=== PATIENT | female | born 1975 | race Caucasian/White ===

== ENCOUNTER 2016-10-06 18:40 | Emergency (ER) | payer SELFPAY ==
--- NOTE | 2016-10-06 19:00 | ER Document Report ---
ED Medical Screen (RME) - General Stated Complaint: LEG PAIN Time seen by provider: 18:58 Mode of Arrival: Ambulatory Information source: Patient Notes: 41-year-old female presents to ED for pain left hip and leg and all the way to knees with numbness to toes. She states she has nightmares and fell out of bed Friday night. She states the pain is progressively gotten worse since Friday. Her blood pressure is elevated in RME she states that her blood pressures always elevated when she has pain. I have greeted and performed a rapid initial assessment of this patient. A comprehensive ED assessment and evaluation of the patient, analysis of test results and completion of medical decision making process will be conducted by an additional ED providers. TRAVEL OUTSIDE OF THE [place] IN LAST 30 DAYS: No COUNTRY TRAVELED TO/FROM: [facility] - Related Data Allergies/Adverse Reactions: pineapple [Pineapple] Allergy (Severe, Verified 07/10/16 03:35) Blisters hydrocodone [Hydrocodone] Adverse Reaction (Severe, Verified 07/10/16 03:35) Patient states "Really bad Headache" Powder From Gloves Allergy (Mild, Uncoded 07/10/16 03:35) Blisters Past Medical History - Past Medical History Cardiac Medical History: Denies: Hx Coronary Artery Disease, Hx Heart Attack, Hx Hypertension Pulmonary Medical History: Reports: Hx Asthma Denies: Hx Bronchitis, Hx COPD, Hx Pneumonia Neurological Medical History: Denies: Hx Cerebrovascular Accident, Hx Seizures Renal/ Medical History: Reports: Hx Kidney Stones, Hx Ovarian Cysts GI Medical History: Reports: Hx Gastroesophageal Reflux Disease Musculoskeltal Medical History: Denies Hx Arthritis, Reports Hx Musculoskeletal Trauma Traumatic Medical History: Reports: Hx Fractures Past Surgical History: Reports: Hx Kidney (Renal Surgery) - stones, Hx Orthopedic Surgery - right foot, Hx Tonsillectomy - Immunizations Immunizations up to date: Yes Hx Diphtheria, Pertussis, Tetanus Vaccination: Yes Physical Exam - Vital signs Vitals: Temp Pulse Resp BP Pulse Ox 98.4 F 83 20 167/109 H 99 10/06/16 18:51 10/06/16 18:51 10/06/16 18:51 10/06/16 18:51 10/06/16 18:51 Course - Vital Signs Vital signs: Temp Pulse Resp BP Pulse Ox 98.4 F 83 20 167/109 H 99 10/06/16 18:51 10/06/16 18:51 10/06/16 18:51 10/06/16 18:51 10/06/16 18:51
[2016-10-06] MEDS ORDERED: ACETAMINOPHEN 325 MG TABLET PO ONE (19:01)
[2016-10-06] MEDS ORDERED: ONDANSETRON 4 MG TAB.RAPDIS PO ONE (19:01)
[2016-10-06] MEDS ORDERED: OXYCODONE HCL IR 5 MG TABLET PO ONE (19:34)
--- NOTE | 2016-10-06 19:35 | ER Document Report ---
ED Hip Pain/Injury - General Chief Complaint: Hip Pain Stated Complaint: LEG PAIN Mode of Arrival: Ambulatory Notes: Patient is a 41-year-old female that comes emergency department with chief complaint of pain to her left hip, thigh, and also in the left side of her lower back. She states that she feels intermittent tingling to the side of her left foot and toes, she states that 3 days ago she actually fell out of her bed while having a nightmare and landed on her left hip/side, states that she has had progressively worsening symptoms since that time. She is not on a blood thinner. Past medical history of type II diabetes. TRAVEL OUTSIDE OF THE [place] IN LAST 30 DAYS: No COUNTRY TRAVELED TO/FROM: [facility] - Related Data Allergies/Adverse Reactions: pineapple [Pineapple] Allergy (Severe, Verified 10/06/16 19:01) Blisters hydrocodone [Hydrocodone] Adverse Reaction (Severe, Verified 10/06/16 19:01) Patient states "Really bad Headache" Powder From Gloves Allergy (Mild, Uncoded 10/06/16 19:01) Blisters Home Medications: Current Home Medications Levothyroxine Sodium [Synthroid] 100 mcg PO DAILY 10/06/16 [History] Metformin HCl [Glucophage] 1,000 mg PO BID 10/06/16 [History] Past Medical History - General Information source: Patient - Social History Smoking Status: Current Every Day Smoker Chew tobacco use (# tins/day): No Frequency of alcohol use: Social Drug Abuse: None Lives with: Family Family History: Arthritis, Hypertension, Thyroid Disfunction Patient has suicidal ideation: No Patient has homicidal ideation: No - Past Medical History Cardiac Medical History: Denies: Hx Coronary Artery Disease, Hx Heart Attack, Hx Hypertension Pulmonary Medical History: Reports: Hx Asthma Denies: Hx Bronchitis, Hx COPD, Hx Pneumonia Neurological Medical History: Denies: Hx Cerebrovascular Accident, Hx Seizures Renal/ Medical History: Reports: Hx Kidney Stones, Hx Ovarian Cysts. Denies: Hx Peritoneal Dialysis GI Medical History: Reports: Hx Gastroesophageal Reflux Disease Musculoskeltal Medical History: Denies Hx Arthritis, Reports Hx Musculoskeletal Trauma Traumatic Medical History: Reports: Hx Fractures Past Surgical History: Reports: Hx Kidney (Renal Surgery) - stones, Hx Orthopedic Surgery - right foot, Hx Tonsillectomy - Immunizations Immunizations up to date: Yes Hx Diphtheria, Pertussis, Tetanus Vaccination: Yes Review of Systems - Review of Systems Constitutional: No symptoms reported EENT: No symptoms reported Cardiovascular: No symptoms reported Respiratory: No symptoms reported Gastrointestinal: No symptoms reported Genitourinary: No symptoms reported Female Genitourinary: No symptoms reported Musculoskeletal: See HPI Skin: No symptoms reported Hematologic/Lymphatic: No symptoms reported Neurological/Psychological: No symptoms reported Physical Exam - Vital signs Vitals: Temp Pulse Resp BP Pulse Ox 98.4 F 83 20 167/109 H 99 10/06/16 18:51 10/06/16 18:51 10/06/16 18:51 10/06/16 18:51 10/06/16 18:51 Interpretation: Normal - General General appearance: Appears well, Alert In distress: None - HEENT Head: Normocephalic, Atraumatic Eyes: Normal Conjunctiva: Normal Extraocular movements intact: Yes Eyelashes: Normal Pupils: PERRL Sinus: Normal Nasal: Normal Mouth/Lips: Normal Mucous membranes: Normal Pharynx: Normal Neck: Normal - Respiratory Respiratory status: No respiratory distress Chest status: Nontender Breath sounds: Normal. No: Decreased air movement, Productive cough, Wheezing Chest palpation: Normal - Cardiovascular Rhythm: Regular. No: Tachycardia Heart sounds: Normal auscultation, S1 appreciated, S2 appreciated Murmur: No - Abdominal Inspection: Normal Distension: No distension Bowel sounds: Normal Tenderness: Nontender. No: Tender, Guarding - Back Back: Other - Mild generalized left lower lumbar and buttocks tenderness, no signs of trauma, no saddle anesthesia, no midline spinal tenderness - Extremities General upper extremity: Normal inspection, Nontender, Normal color, Normal ROM , Normal temperature General lower extremity: Other - Patient with general tenderness over the left lateral thigh over the femoral bursa area and over the proximal thigh, no ecchymosis or swelling, no numbness, patient maintains range of motion and ability to walk on the leg, normal distal neurovascular exam. - Neurological Neuro grossly intact: Yes Cognition: Normal Orientation: AAOx4 [place] Coma Scale Eye Opening: Spontaneous [place] Coma Scale Verbal: Oriented [place] Coma Scale Motor: Obeys Commands [place] Coma Scale Total: 15 Speech: Normal Motor strength normal: LUE, RUE, LLE, RLE Sensory: Normal - Psychological Associated symptoms: Normal affect, Normal mood - Skin Skin Temperature: Warm Skin Moisture: Dry Skin Color: Normal Course - Re-evaluation Re-evalutation: No signs of trauma on exam. Patient does have general tenderness over the left lateral thigh and over the femoral bursa area, she walks with a limp and does appear to have difficulty getting comfortable when sitting or lying down. Patient reports she is much improved after pain medication and appears much more comfortable. X-ray is normal, patient has no neurological deficits, no saddle anesthesia, no bowel or bladder complaints, and she can ambulate. Discussed x-ray, discussed treatment plan of pain medication, muscle relaxer, ice, rest, and follow-up with orthopedics with patient, discussed return precautions, patient states satisfaction and agreement with plan. - Vital Signs Vital signs: Temp Pulse Resp BP Pulse Ox 98.5 F 86 20 170/90 H 96 10/06/16 21:34 10/06/16 21:34 10/06/16 18:51 10/06/16 21:34 10/06/16 21:34 Discharge - Discharge Clinical Impression: Hip pain Qualifiers: Laterality: left Qualified Code(s): M25.552 - Pain in left hip Fall Qualifiers: Encounter type: initial encounter Qualified Code(s): W19.XXXA - Unspecified fall, initial encounter Thigh pain Qualifiers: Laterality: left Qualified Code(s): M79.652 - Pain in left thigh Condition: Stable Disposition: HOME, SELF-CARE Additional Instructions: No fracture seen on the imaging. Rest, take the muscle relaxer and pain medication as directed, ice your hip and thigh. If symptoms continue follow-up with orthopedics for additional management. Return to emergency department for any concerning worsening symptoms including loss of bowel or bladder functioning, severe swelling, redness to the area, or any other concerning symptoms. Prescriptions: Methocarbamol [Robaxin 750 mg Tablet] 750 mg PO Q6 #20 tablet Oxycodone HCl/Acetaminophen [Percocet 5-325 mg Tablet] 1 - 2 tab PO Q4H PRN #15 tablet PRN Reason: Forms: Elevated Blood Pressure
[2016-10-06 21:38] VITALS: BP 170/90
== END 2016-10-06 21:38 | disposition home or self-care (01) ==
LOC: ER 18:40
DX: M25.552 Pain in left hip (principal); M79.652 Pain in left thigh; M54.5 Low back pain; R20.2 Paresthesia of skin; W06.XXXA Fall from bed, initial encounter; Y93.84 Activity, sleeping; E11.9 Type 2 diabetes mellitus without complications; J45.909 Unspecified asthma, uncomplicated; F17.200 Nicotine dependence, unspecified, uncomplicated; Z91.018 Allergy to other foods; Z91.048 Other nonmedicinal substance allergy status
CPT/HCPCS: 99283; 73502; S0119

== ENCOUNTER → 2017-06-23 | Outpatient (CLI) | payer OTHER ==
[2017-06-23 15:51] LABS: SODIUM 138.8 mmol/L (137-145)
== END ==
LOC: CCC 14:51
DX: I10 Essential (primary) hypertension (principal); E03.9 Hypothyroidism, unspecified; E10.8 Type 1 diabetes mellitus with unspecified complications
CPT/HCPCS: 36415; 80051; 83036; 84436; 84443

== ENCOUNTER 2017-10-29 10:10 | Emergency (ER) | payer SELFPAY ==
--- NOTE | 2017-10-29 10:52 | ER Document Report ---
ED Hip Pain/Injury - General Chief Complaint: Hip Pain Stated Complaint: PELVIC AND RIGHT HIP PAIN Time Seen by Provider: 10/29/17 10:39 Mode of Arrival: Wheelchair Information source: Patient Notes: 42-year-old female presents to ED for complaint of right hip and pelvic pain. She states she slipped in the bathtub on Friday when she was washing her feet with her foot up against the tub wall she slipped hitting the tub while with her hip and pelvis. She states she has pain in her "vagina". She states the pain is only been getting worse not getting better. She did ambulate but received a walk wheelchair since she got to the emergency room. She has a history of diabetes high blood pressure hypothyroid kidney stones and a foot fracture. TRAVEL OUTSIDE OF THE [place] IN LAST 30 DAYS: No COUNTRY TRAVELED TO/FROM: [facility] - HPI Occurred: Other - Friday Where: Home, Indoors Onset/Duration: Sudden, Persistent Quality of pain: Sharp, Throbbing Severity: Severe Pain Level: 5 Context: Fell/slipped Symptoms prior to fall: None Skin Color: Normal Rotation of extremity: None Pain with palpation of the pelvis: Yes Associated Symptoms: None Other injuries: RLE - Related Data Allergies/Adverse Reactions: pineapple [Pineapple] Allergy (Severe, Verified 10/29/17 10:36) Blisters hydrocodone [Hydrocodone] Adverse Reaction (Severe, Verified 10/29/17 10:36) Patient states "Really bad Headache" Powder From Gloves Allergy (Mild, Uncoded 10/29/17 10:36) Blisters Past Medical History - General Information source: Patient - Social History Smoking Status: Current Every Day Smoker Cigarette use (# per day): Yes - Half pack per day Chew tobacco use (# tins/day): No Smoking Education Provided: Yes - 4 minutes Frequency of alcohol use: None Drug Abuse: None Occupation: [employer] Lives with: Parents Family History: Arthritis, CAD, COPD, CVA, DM, Hyperlipidemia, Hypertension, Malignancy, Thyroid Disfunction Patient has suicidal ideation: No Patient has homicidal ideation: No - Past Medical History Cardiac Medical History: Reports: Hx Hypertension Pulmonary Medical History: Reports: Hx Asthma EENT Medical History: Reports: None Neurological Medical History: Reports: None Endocrine Medical History: Reports: Hx Diabetes Mellitus Type 2, Hx Hypothyroidism Renal/ Medical History: Reports: Hx Kidney Stones, Hx Ovarian Cysts Malignancy Medical History: Reports: None GI Medical History: Reports: Hx Gastroesophageal Reflux Disease Musculoskeltal Medical History: Reports Hx Musculoskeletal Trauma Skin Medical History: Reports None Psychiatric Medical History: Reports: None Traumatic Medical History: Reports: Hx Fractures - Foot Infectious Medical History: Reports: None Past Surgical History: Reports: Hx Kidney (Renal Surgery) - stones, Hx Orthopedic Surgery - right foot, Hx Tonsillectomy - Immunizations Immunizations up to date: Yes Hx Diphtheria, Pertussis, Tetanus Vaccination: Yes Review of Systems - Review of Systems Constitutional: No symptoms reported EENT: No symptoms reported Cardiovascular: No symptoms reported Respiratory: No symptoms reported Gastrointestinal: No symptoms reported Genitourinary: No symptoms reported Female Genitourinary: No symptoms reported Musculoskeletal: Joint pain - Right hip and pelvic pain. denies: Joint swelling Skin: No symptoms reported Hematologic/Lymphatic: No symptoms reported Neurological/Psychological: No symptoms reported -: Yes All other systems reviewed and negative Physical Exam - Vital signs Vitals: Temp Pulse Resp BP Pulse Ox 97.7 F 86 20 150/90 H 98 10/29/17 10:18 10/29/17 10:18 10/29/17 10:18 10/29/17 10:18 10/29/17 10:18 Interpretation: Normal - General General appearance: Appears well, Alert - HEENT Head: Normocephalic, Atraumatic Eyes: Normal Pupils: PERRL - Respiratory Respiratory status: No respiratory distress Chest status: Nontender Breath sounds: Normal Chest palpation: Normal - Cardiovascular Rhythm: Regular Heart sounds: Normal auscultation Murmur: No - Abdominal Inspection: Normal Distension: No distension Bowel sounds: Normal Tenderness: Nontender Organomegaly: No organomegaly - Back Back: Normal, Nontender - Extremities General upper extremity: Normal inspection, Nontender, Normal color, Normal ROM , Normal temperature General lower extremity: Normal inspection, Normal color, Normal temperature. No: Geovany's sign Hip: Tender, Pain with ROM. No: Abrasion, Deformity, Dislocation, Ecchymosis, Instability, Laceration, Unable to bear weight - Very painful to bear weight - Neurological Neuro grossly intact: Yes Cognition: Normal Orientation: AAOx4 [place] Coma Scale Eye Opening: Spontaneous [place] Coma Scale Verbal: Oriented [place] Coma Scale Motor: Obeys Commands [place] Coma Scale Total: 15 Speech: Normal Motor strength normal: LUE, RUE, LLE, RLE Sensory: Normal - Psychological Associated symptoms: Normal affect, Normal mood - Skin Skin Temperature: Warm Skin Moisture: Dry Skin Color: Normal Course - Re-evaluation Re-evalutation: 10/29/17 12:07 X-ray shows no acute fractures or malalignment. She has mild SI joint vacuum phenomenon bilaterally mild acetabulum rim bony spurring otherwise a negative x- ray. Patient will be treated with ibuprofen in the emergency room and given a prescription for [place]. Patient will be discharged home and have follow-up with orthopedics. - Vital Signs Vital signs: Temp Pulse Resp BP Pulse Ox 98.5 F 72 16 128/77 H 99 10/29/17 12:23 10/29/17 12:23 10/29/17 12:23 10/29/17 12:23 10/29/17 12:23 - Diagnostic Test Radiology reviewed: Image reviewed, Reports reviewed Discharge - Discharge Clinical Impression: Contusion of right hip Qualifiers: Encounter type: initial encounter Qualified Code(s): S70.01XA - Contusion of right hip, initial encounter Condition: Stable Disposition: HOME, SELF-CARE Additional Instructions: CONTUSION: Your injury has resulted in a contusion -- a crushing of the deep tissues. No injury to important structures was detected during the physician's exam. Contusions vary in the amount of pain they cause, and in the length of time required for healing. Typically, the area will become bruised, and will remain painful to touch for two or three weeks. However, most patients are back to working and playing within a few days. After the initial period of rest and cold-packs, your symptoms (together with the doctor's recommendations) will determine how rapidly you can get back to full activity. Usually this means "do what feels okay, but don't do things that hurt." If re-examination was recommended, it's important to follow up as instructed. Call the doctor or return any time if pain increases, if swelling becomes severe, if you develop numbness or weakness in an injured extremity, or if any other alarming symptoms occur. USE OF TYLENOL (ACETAMINOPHEN): Acetaminophen may be taken for pain relief or fever control. It's much safer than aspirin, offering a wider range of "safe" dosages. It is safe during . Some brand names are Tylenol, Panadol, Datril, Anacin 3, Tempra, and Liquiprin. Acetaminophen can be repeated every four hours. The following are maximum recommended dosages: WEIGHT Dose Drops Elixir Chewable( 80mg) (LBS.) drprs=droppers tsp=teaspoon 6 40 mg 0.4 ml (1/2) 6-11 80 mg 0.8 ml (full) tsp 1 tab 12-16 120 mg 1 1/2 drprs 3/4 tsp 1 1/2 tabs 17-23 160 mg 2 drprs 1 tsp 2 tabs 24-30 240 mg 3 drprs 1 1/2 tsp 3 tabs 30-35 320 mg 2 tsp 4 tabs 36-41 360 mg 2 1/4 tsp 4 1/2 tabs 42-47 400 mg 2 1/2 tsp 5 tabs 48-53 480 mg 3 tsp 6 tabs 54-59 520 mg 3 1/4 tsp 6 1/2 tabs 60-64 560 mg 3 1/2 tsp 7 tabs 65-70 600 mg 3 3/4 tsp 7 1/2 tabs 71-76 640 mg 4 tsp 8 tabs 77-82 720 mg 4 1/2 tsp 9 tabs 83-88 800 mg 5 tsp 10 tabs >89 pounds or adults 650 mg to 900 mg Acetaminophen can be repeated every four hours. Maximum dose not to exceed 4000 mg a day. These maximum recommended dosages are slightly higher than the dosages written on the product container, but these dosages are very safe and below the toxic dosage for acetaminophen. ICE PACKS: Apply ice packs frequently against the painful area. Many different schedules are recommended, such as "20 minutes on, 20 minutes off" or "one hour ice, two hours rest." If you need to work, you may need to go longer between ice treatments. You should plan to have the area ice packed AT LEAST one fourth of the time. The ice should be applied over the wrap, tape, or splint, or over a layer of cloth -- not directly against the skin. Some ice bags have a built-in cloth and can be put directly on the skin. WARM PACKS: After approximately two days, apply gentle heat (such as a heating pad or hot water bottle) for about 20 to 30 minutes about every two hours -- at least four times daily. Warmth and elevation will help you make a more rapid recovery , and will ease the pain considerably. Do not use HOT heat, and never apply heat for longer than 30 minutes. The continuous heat can invisibly damage skin and muscles -- even when no burn is seen on the surface. Damaged muscles can make you MORE sore. ORAL NARCOTIC MEDICATION: You have been given a prescription for pain control. This medication is a narcotic. It's best taken with food, as nausea can result if taken on an empty stomach. Don't operate machinery or drive within six hours of taking this medication. Do not combine this medicine with alcohol, or with any medication which can cause sedation (such as cold tablets or sleeping pills) unless you get permission from the physician. Narcotics tend to cause constipation. If possible, drink plenty of fluids and eat a diet high in fiber and fruits. FOLLOW-UP CARE: If you have been referred to a physician for follow-up care, call the physician s office for an appointment as you were instructed or within the next two days. If you experience worsening or a significant change in your symptoms, notify the physician immediately or return to the Emergency Department at any time for re-evaluation. Prescriptions: Hydrocodone/Acetaminophen [[place] 5-325 mg Tablet] 1 tab PO Q6HP PRN #14 tablet PRN Reason: Ondansetron [Zofran Odt 4 mg Tablet] 1 tab PO Q6H #15 tab.rapdis Forms: Elevated Blood Pressure, Smoking Cessation Education, Return to Work Referrals: GABRIEL SAMPSON MD [ACTIVE STAFF] - Follow up as needed
--- NOTE | 2017-10-29 11:16 | RADIOLOGY REPORT (SQ) ---
EXAM DESCRIPTION: HIP RIGHT AP/LATERAL COMPLETED DATE/TIME: 10/29/2017 10:53 am REASON FOR STUDY: fell sat pain COMPARISON: None. NUMBER OF VIEWS: Two views. TECHNIQUE: AP pelvis and additional frog-leg view of the right hip. LIMITATIONS: None. FINDINGS: MINERALIZATION: Normal. RIGHT HIP: No fracture or dislocation. No worrisome bone lesions. No significant joint space narrow ing or bony spurring. LEFT HIP: No fracture or dislocation. No worrisome bone lesions. No significant joint space narrowi ng. Mild acetabular rim bony spurring PUBIS AND ISCHIUM: No fracture. PELVIS: No fracture. SACRUM: No fracture or dislocation. No worrisome bone lesions. Mild SI joint vacuum phenomenon bilat erally LOWER LUMBAR SPINE: No fracture or dislocation. No worrisome bone lesions. No significant disc disea se. SOFT TISSUES: No findings. OTHER: No other significant finding. IMPRESSION: No acute fracture or malalignment TECHNICAL DOCUMENTATION: JOB ID: [id number] [employer]- All Rights Reserved Reading location - IP/workstation name: [email or web address]
[2017-10-29 12:27] VITALS: BP 128/77
== END 2017-10-29 12:29 | disposition home or self-care (01) ==
LOC: ER 10:10
DX: S70.01XA Contusion of right hip, initial encounter (principal); M25.551 Pain in right hip; R10.2 Pelvic and perineal pain; W18.2XXA Fall in (into) shower or empty bathtub, initial encounter; Y93.E1 Activity, personal bathing and showering; Y92.002 Bathroom of unspecified non-institutional (private) residence as the place of occurrence of the external cause; M77.8 Other enthesopathies, not elsewhere classified; M53.3 Sacrococcygeal disorders, not elsewhere classified; I10 Essential (primary) hypertension; E11.9 Type 2 diabetes mellitus without complications; J45.909 Unspecified asthma, uncomplicated; F17.210 Nicotine dependence, cigarettes, uncomplicated; Z71.6 Tobacco abuse counseling; Z91.018 Allergy to other foods
CPT/HCPCS: 99283; 99406

== ENCOUNTER 2018-01-13 14:30 | Emergency (ER) | payer SELFPAY ==
[2018-01-13 14:38] VITALS: BP 126/87
[2018-01-13] MEDS ORDERED: DEXAMETHASONE SOD PHOS INJ 10 MG/1 ML VIAL IM ONE (15:05)
--- NOTE | 2018-01-13 15:10 | ER Document Report ---
ED Fall - General Chief Complaint: Fall Stated Complaint: FALL/HIP PAIN Time Seen by Provider: 01/13/18 14:54 Mode of Arrival: Wheelchair Information source: Patient Notes: 41-year-old female presented ED for complaint of right hip pain going down her right leg up to her right kidney. She states that she fell out of bed while she was asleep woke up on the floor. She states she hit her head on the nightstand and hit something on her hip. She states she has been having pain since she had her last injury to this area and it is just gotten worse today. She is alert and oriented speaking in full sentences respirations regular and unlabored pupils equal and react to light. She states she is not having any neurological problems from hitting her head she woke up when she hit her head she did not fall asleep. TRAVEL OUTSIDE OF THE [place] IN LAST 30 DAYS: No COUNTRY TRAVELED TO/FROM: [facility] - HPI Occurred: This morning Where: Home, Indoors Context: Fell from standing - Fell out of bed Associated symptoms: None Location of injury/pain: Pelvic, Lower extremity Quality of pain: Sharp Severity: Severe Pain Level: 5 - Related data Allergies/Adverse Reactions: pineapple [Pineapple] Allergy (Severe, Verified 10/29/17 10:36) Blisters hydrocodone [Hydrocodone] Adverse Reaction (Severe, Verified 10/29/17 10:36) Patient states "Really bad Headache" Powder From Gloves Allergy (Mild, Uncoded 10/29/17 10:36) Blisters Past Medical History - General Information source: Patient - Social History Smoking Status: Current Every Day Smoker Cigarette use (# per day): Yes Smoking Education Provided: Yes - 4 minutes Frequency of alcohol use: None Drug Abuse: None Lives with: Parents Family History: Arthritis, CAD, COPD, CVA, DM, Hyperlipidemia, Hypertension, Malignancy, Thyroid Disfunction Patient has suicidal ideation: No Patient has homicidal ideation: No - Past Medical History Cardiac Medical History: Reports: Hx Hypertension Pulmonary Medical History: Reports: Hx Asthma EENT Medical History: Reports: None Neurological Medical History: Reports: None Endocrine Medical History: Reports: Hx Diabetes Mellitus Type 2, Hx Hypothyroidism Renal/ Medical History: Reports: Hx Kidney Stones, Hx Ovarian Cysts Malignancy Medical History: Reports: None GI Medical History: Reports: Hx Gastroesophageal Reflux Disease Musculoskeltal Medical History: Reports Hx Musculoskeletal Trauma Skin Medical History: Reports None Psychiatric Medical History: Reports: None Traumatic Medical History: Reports: Hx Fractures - Foot Infectious Medical History: Reports: None Past Surgical History: Reports: Hx Kidney (Renal Surgery) - stones, Hx Orthopedic Surgery - right foot, Hx Tonsillectomy - Immunizations Immunizations up to date: Yes Hx Diphtheria, Pertussis, Tetanus Vaccination: Yes Review of Systems - Review of Systems Constitutional: No symptoms reported EENT: No symptoms reported Cardiovascular: No symptoms reported Respiratory: No symptoms reported Gastrointestinal: No symptoms reported Genitourinary: No symptoms reported Female Genitourinary: No symptoms reported Musculoskeletal: Back pain, Muscle pain, Muscle stiffness Skin: No symptoms reported Hematologic/Lymphatic: No symptoms reported Neurological/Psychological: No symptoms reported -: Yes All other systems reviewed and negative Physical Exam - Vital signs Vitals: Temp Pulse Resp BP Pulse Ox 98.3 F 93 18 126/87 H 98 01/13/18 14:37 01/13/18 14:37 01/13/18 14:37 01/13/18 14:37 01/13/18 14:37 Interpretation: Normal - General General appearance: Appears well, Alert - HEENT Head: Normocephalic, Atraumatic Eyes: Normal Pupils: PERRL - Respiratory Respiratory status: No respiratory distress Chest status: Nontender Breath sounds: Normal Chest palpation: Normal - Cardiovascular Rhythm: Regular Heart sounds: Normal auscultation Murmur: No - Abdominal Inspection: Normal Distension: No distension Bowel sounds: Normal Tenderness: Nontender Organomegaly: No organomegaly - Back Back: Normal, Tender. No: Deformity/step-off, CVA tenderness, Vertebra tenderness, Scars, Scoliosis - Extremities General upper extremity: Normal inspection, Nontender, Normal color, Normal ROM , Normal temperature General lower extremity: Normal inspection, Nontender, Normal color, Normal ROM , Normal temperature, Normal weight bearing. No: Geovany's sign - Neurological Neuro grossly intact: Yes Cognition: Normal Orientation: AAOx4 Charles Coma Scale Eye Opening: Spontaneous Charles Coma Scale Verbal: Oriented Charles Coma Scale Motor: Obeys Commands Charles Coma Scale Total: 15 Speech: Normal Motor strength normal: LUE, RUE, LLE, RLE Sensory: Normal - Psychological Associated symptoms: Normal affect, Normal mood - Skin Skin Temperature: Warm Skin Moisture: Dry Skin Color: Normal Course - Vital Signs Vital signs: Temp Pulse Resp BP Pulse Ox 98.3 F 93 18 126/87 H 98 01/13/18 14:37 01/13/18 14:37 01/13/18 14:37 01/13/18 14:37 01/13/18 14:37 - Laboratory Laboratory results interpreted by me: 01/13/18 15:14 Urine Ketones TRACE H Urine Urobilinogen 2.0 H Ur Leukocyte Esterase SMALL H - Diagnostic Test Radiology reviewed: Image reviewed, Reports reviewed Discharge - Discharge Clinical Impression: Chronic right sacroiliac pain Fall Qualifiers: Encounter type: initial encounter Qualified Code(s): W19.XXXA - Unspecified fall, initial encounter Sciatica Qualifiers: Laterality: right Qualified Code(s): M54.31 - Sciatica, right side Condition: Stable Disposition: HOME, SELF-CARE Additional Instructions: LOW BACK PAIN: Three out of every four people will have an episode of disabling back pain during their lifetime. Most commonly the pain is due to straining of the muscles and ligaments in the low back. Usual treatment includes: (1) Rest on a firm surface. Avoid lying on your stomach. (2) Ice pack the painful area. After a few days, gentle heat may be used intermittently to relax the area, or ice packs can be continued. (3) Medication may be needed -- muscle relaxers and antiinflammatory medicines are commonly used. (4) As the back improves, exercises are prescribed to strengthen the back and abdominal muscles. Your doctor will advise you on the proper care for your back at each stage in your recovery. You may be better in a few days -- or healing may take several weeks. If new symptoms of a "herniated disc" (radiation of pain, numbness, or tingling down the back of the leg or weakness in the leg) occur, you should be re-examined. Further testing may be necessary. MUSCLE RELAXERS: Muscle relaxing medications are usually prescribed for acute muscle spasm or injury to the neck and back. They are often combined with antiinflammatory pain medication for increased relief. You may stop the muscle relaxer when the pain and stiffness have improved. Start the medication again if spasms recur. Muscle relaxers may cause drowsiness, especially with the first dose. Do not operate machinery or drive while under the effects of the medication. Most muscle relaxers last up to 24 hours. Do not combine the medication with alcohol. ICE PACKS: Apply ice packs frequently against the painful area. Many different schedules are recommended, such as "20 minutes on, 20 minutes off" or "one hour ice, two hours rest." If you need to work, you may need to go longer between ice treatments. You should plan to have the area ice packed AT LEAST one fourth of the time. The ice should be applied over the wrap, tape, or splint, or over a layer of cloth -- not directly against the skin. Some ice bags have a built-in cloth and can be put directly on the skin. WARM PACKS: After approximately two days, apply gentle heat (such as a heating pad or hot water bottle) for about 20 to 30 minutes about every two hours -- at least four times daily. Warmth and elevation will help you make a more rapid recovery , and will ease the pain considerably. Do not use HOT heat, and never apply heat for longer than 30 minutes. The continuous heat can invisibly damage skin and muscles -- even when no burn is seen on the surface. Damaged muscles can make you MORE sore. STEROID MEDICATION: You have been given a medicine of the cortisone/steroid class. This medication is used to control inflammation or allergy. It is usually only given for a short period of time, until the acute process subsides. There are usually no side effects from short-term use of cortisone-like medications. Some persons feel an increased sense of well-being and are not sleepy at bedtime. Long-term use of cortisone medications is best avoided, unless required for a severe condition. If your condition does not remit, or relapses after the course of corticosteroid medication, you should consult your physician. Stretching Exercises for the Back The physician has recommended that you begin stretching exercises for your back. These are often used even while the back is painful. However, you should notify the physician if the activities seem to increase your pain. PELVIC TILT: Lie flat on your back with knees bent. Tighten your stomach and buttock muscles so it flattens your lower back against the floor. Hold 10 seconds. Repeat 10 times, twice daily. KNEE RAISE: Lying on the back with knees bent, raise one knee to your chest, then the other. Hold both knees against the chest 10 seconds, then lower one knee at a time. Repeat 10 times, twice daily. PARTIAL TRUNK RAISE: Lie face down, arms at your sides. Keeping your waist on the floor, use your arms raise your chest up. Support yourself on your elbows for 30 seconds. Repeat twice daily, increasing the time to two minutes as you recover. FOLLOW-UP CARE: If you have been referred to a physician for follow-up care, call the physician s office for an appointment as you were instructed or within the next two days. If you experience worsening or a significant change in your symptoms, notify the physician immediately or return to the Emergency Department at any time for re-evaluation. Prescriptions: Cyclobenzaprine HCl [Flexeril 10 mg Tablet] 10 mg PO TIDP PRN #15 tab PRN Reason: Prednisone [Deltasone 20 mg Tablet] 3 tab PO DAILY 2 Days tablet Forms: Elevated Blood Pressure, Smoking Cessation Education, Return to Work Referrals: VELVET CHRISTIANSON MD [Primary Care Provider] - Follow up as needed
[2018-01-13 15:28] LABS: APPEARANCE,URINE CLEAR; BILIRUBIN,URINE NEGATIVE (NEGATIVE); COLOR,URINE YELLOW; GLUCOSE, URINE NEGATIVE (NEGATIVE); KETONES,URINE TRACE mg/dL (NEGATIVE); LEUKOCYTE ESTERASE,URINE SMALL (NEGATIVE); NITRITE,URINE NEGATIVE (NEGATIVE); PROTEIN,URINE NEGATIVE (NEGATIVE); URINE SPECIFIC GRAVITY 1.021
--- NOTE | 2018-01-13 15:53 | RADIOLOGY REPORT (SQ) ---
EXAM DESCRIPTION: PELVIS AP COMPLETED DATE/TIME: 01/13/2018 3:41 pm REASON FOR STUDY: right si pain, fall COMPARISON: None. NUMBER OF VIEWS: One view TECHNIQUE: AP Pelvis LIMITATIONS: None. FINDINGS: MINERALIZATION: Normal. HIPS: No acute fracture or dislocation. No worrisome bone lesions. PELVIS AND SACRUM: No acute fracture or dislocation. No worrisome bone lesions. PUBIS AND ISCHIUM: No acute fracture. LOWER LUMBAR SPINE: No significant findings as visualized. SOFT TISSUES: No findings. OTHER: No other significant finding. IMPRESSION: NEGATIVE STUDY OF THE PELVIS. TECHNICAL DOCUMENTATION: JOB ID: [id number] [employer]- All Rights Reserved Reading location - IP/workstation name: [email or web address]
== END 2018-01-13 16:17 | disposition home or self-care (01) ==
LOC: ER 14:30
DX: M54.31 Sciatica, right side (principal); M25.551 Pain in right hip; R10.2 Pelvic and perineal pain; W06.XXXA Fall from bed, initial encounter; Y93.84 Activity, sleeping; Y92.003 Bedroom of unspecified non-institutional (private) residence as the place of occurrence of the external cause; M53.3 Sacrococcygeal disorders, not elsewhere classified; G89.29 Other chronic pain; I10 Essential (primary) hypertension; E11.9 Type 2 diabetes mellitus without complications; J45.909 Unspecified asthma, uncomplicated; F17.210 Nicotine dependence, cigarettes, uncomplicated; Z71.6 Tobacco abuse counseling; Z91.018 Allergy to other foods; Z91.048 Other nonmedicinal substance allergy status
CPT/HCPCS: 99406; 99283; 96372; 87086; 81001; 72170; J1100

== ENCOUNTER 2018-06-28 13:50 | Emergency (ER) | payer SELFPAY ==
--- NOTE | 2018-06-28 15:31 | ER Document Report ---
ED Eye Complaint - General Chief Complaint: Eye Problem Stated Complaint: LEFT EYE IRRITATION,PAIN Time Seen by Provider: 06/28/18 15:00 Mode of Arrival: Ambulatory Information source: Patient Notes: Patient is a 42-year-old female comes emergency room complaining of left eye swelling and discomfort. Patient states woke her up out of sleep this morning she attempted to use Visine and she went to wash it out. She still having discomfort when she puts her eyelid back a little bit she sees a puffy area. This is the area that apparently hurts. She denies any known trauma and denies any visual changes. Patient does wear glasses but there [employer] socially uses him for driving. She goes to [facility] here in town which is Dr. Donovan she has not seen either of the of the physicians over there for a while. She is concerned because the discomfort just will not leave. Again she has no visual complaints TRAVEL OUTSIDE OF THE [place] IN LAST 30 DAYS: No COUNTRY TRAVELED TO/FROM: [facility] Onset: This morning Eye location: Left Occurred at: Home Quality of pain: Achy, Sharp Severity: Moderate Pain Level: 3 Exposure: No: Alkaline chemical, Acidic chemical, Unknown chemical, Direct trauma, Projectile, Broken glass, Conjunctivitis, Welding arc Safety glasses worn: No Contact lenses worn: No Eye irrigated by: Patient Associated symptoms: Burning, Pain, Redness. denies: Foreign body sensation, Blurred vision, Double vision, Decreased vision, Loss of vision - Related Data Allergies/Adverse Reactions: pineapple [Pineapple] Allergy (Severe, Verified 06/28/18 13:51) Blisters hydrocodone [Hydrocodone] Adverse Reaction (Severe, Verified 06/28/18 13:51) Patient states "Really bad Headache" Powder From Gloves Allergy (Mild, Uncoded 06/28/18 13:51) Blisters Past Medical History - General Information source: Patient - Social History Smoking Status: Current Every Day Smoker Cigarette use (# per day): Yes - Half-pack a day Chew tobacco use (# tins/day): No Smoking Education Provided: Yes Frequency of alcohol use: None Drug Abuse: None Family History: Reviewed & Not Pertinent, Arthritis, CAD, COPD, CVA, DM, Hyperlipidemia, Hypertension, Malignancy, Thyroid Disfunction Patient has suicidal ideation: No Patient has homicidal ideation: No - Past Medical History Cardiac Medical History: Reports: Hx Hypertension Pulmonary Medical History: Reports: Hx Asthma Endocrine Medical History: Reports: Hx Diabetes Mellitus Type 2, Hx Hypothyroidism Renal/ Medical History: Reports: Hx Kidney Stones, Hx Ovarian Cysts. Denies: Hx Peritoneal Dialysis GI Medical History: Reports: Hx Gastroesophageal Reflux Disease Musculoskeletal Medical History: Reports Hx Musculoskeletal Trauma Traumatic Medical History: Reports: Hx Fractures - Foot Past Surgical History: Reports: Hx Kidney (Renal Surgery) - stones, Hx Orthopedic Surgery - right foot, Hx Tonsillectomy - Immunizations Immunizations up to date: Yes Hx Diphtheria, Pertussis, Tetanus Vaccination: Yes Review of Systems - Review of Systems Constitutional: No symptoms reported EENT: Eye pain. denies: Blurred vision Cardiovascular: No symptoms reported Respiratory: No symptoms reported Gastrointestinal: No symptoms reported Genitourinary: No symptoms reported Female Genitourinary: No symptoms reported Musculoskeletal: No symptoms reported Skin: No symptoms reported Hematologic/Lymphatic: No symptoms reported Neurological/Psychological: No symptoms reported -: Yes All other systems reviewed and negative Physical Exam - Vital signs Vitals: Temp Pulse Resp BP Pulse Ox 98.5 F 92 20 179/96 H 99 06/28/18 13:55 06/28/18 13:55 06/28/18 13:55 06/28/18 13:55 06/28/18 13:55 Interpretation: Hypertensive - Notes Notes: PHYSICAL EXAMINATION: GENERAL: Patient is a well-nourished well-developed female who is in no apparent distress at the time of physical examination however does seem somewhat uncomfortable. Patient is not photophobic currently HEAD: Atraumatic, normocephalic. EYES: Pupils equal round and reactive to light, extraocular movements intact, further examination shows that the cornea is clear in appearance and there is no sign of any corneal abrasion. The area in question is the left upper inside the eyelid and the whitish part of the eye. Appears that the sclera up in the left upper corner near the globe itself is inflamed. Believe patient has a little scleritis by inspection. ENT: Nares patent, oropharynx clear without exudates. Moist mucous membranes. NECK: Normal range of motion, supple without lymphadenopathy LUNGS: Breath sounds clear to auscultation bilaterally and equal. No wheezes rales or rhonchi. HEART: Regular rate and rhythm without murmurs ABDOMEN: Soft, nontender, nondistended abdomen. No guarding, no rebound. No masses appreciated. Female : deferred Musculoskeletal: Normal range of motion, no pitting or edema. No cyanosis. NEUROLOGICAL: Normal speech, normal gait. Normal sensory, motor exams PSYCH: Normal mood, normal affect. SKIN: Warm, Dry, normal turgor, no rashes or lesions noted. Course - Re-evaluation Re-evalutation: 06/28/18 21:18 Patient's stay in ER was uneventful. After initially seeing your patient was indicating was the pain and discomfort coming from it looked like she had some inflammation of the sclera. The area in question appears to be the left upper portion of the eyelid. That is inflamed underneath next 2 the lateral canthus. I have looked up the physician is in charge of the [facility] is Dr. Donovan I have refer patient over to him. We will use a TobraDex ointment given this got the steroid and antibiotic for possible infectious coverage as well. 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 I believe the ointment will work better than the drops. I need to contact your retail salesworker tomorrow for follow-up visit. There is multitude of ways to treat this and I am giving you a combination of both. Some anti-inflammatory/steroid and an antibiotic. Scleritis can be a potential for some diagnosis is however it is often related to other systemic diseases. This is something that may need to be looked into further and it most likely is nothing but the retail salesworker will be your best bet. Should you have any concerns or problems or cannot get into see them return to ER for recheck. Also your ophthalmology group is not contract preparer for hospital however they are [facility] some the retail salesworker names are Key Mast and John Donovan.. Since you already have history with them I contact them tomorrow to get into as soon as possible. Forms: Elevated Blood Pressure Referrals: VELVET CHRISTIANSON MD [Primary Care Provider] - Follow up as needed KEY MAST OD [NO LOCAL MD] - Follow up as needed
[2018-06-28] MEDS ORDERED: KETOROLAC TROMETHAMINE 0.45% 4 DROP/0.4 ML DROPERETTE OU STA (15:32)
[2018-06-28] MEDS ORDERED: TOBRAMYCIN SULFATE/DEXAMETH OPH OINTMENT 3.5 GM OU STA (15:34)
[2018-06-28 16:16] VITALS: BP 134/90
== END 2018-06-28 16:16 | disposition home or self-care (01) ==
LOC: ER 13:50
DX: H15.002 Unspecified scleritis, left eye (principal); H15.102 Unspecified episcleritis, left eye; I10 Essential (primary) hypertension; J45.909 Unspecified asthma, uncomplicated; E11.9 Type 2 diabetes mellitus without complications; Z91.018 Allergy to other foods; Z91.048 Other nonmedicinal substance allergy status; F17.210 Nicotine dependence, cigarettes, uncomplicated
CPT/HCPCS: 99283; J3490

== ENCOUNTER 2018-11-27 02:18 | Emergency (ER) | payer BC, OTHER ==
[2018-11-27] MEDS ORDERED: AMOXICILLIN TRIHYDRATE 500 MG CAPSULE PO ONE (04:12)
[2018-11-27] MEDS ORDERED: HYDROCODONE/ACETAMINOPHEN 5-325 MG (6 TAB/ER DISP) PO PRN (04:15)
--- NOTE | 2018-11-27 04:15 | ER Document Report ---
ED General - General Chief Complaint: Ear Pain Stated Complaint: EAR PAIN Time Seen by Provider: 11/27/18 03:52 Notes: Patient is a pleasant 43-year-old female who presents with complaint of severe left ear pain. She says she is had some congestion and coughing for the last few days. Tonight she was coughing and felt some pop in her left ear. She now has severe pain behind her left ear and cannot hear well out of her left ear. She denies any blood or fluid coming from her left ear. No other complaints at this time. TRAVEL OUTSIDE OF THE [place] IN LAST 30 DAYS: No COUNTRY TRAVELED TO/FROM: [facility] - Related Data Allergies/Adverse Reactions: pineapple [Pineapple] Allergy (Severe, Verified 06/28/18 13:51) Blisters hydrocodone [Hydrocodone] Adverse Reaction (Severe, Verified 06/28/18 13:51) Patient states "Really bad Headache" Powder From Gloves Allergy (Mild, Uncoded 06/28/18 13:51) Blisters Past Medical History - Social History Smoking Status: Unknown if Ever Smoked Frequency of alcohol use: None Drug Abuse: None Family History: Reviewed & Not Pertinent, Arthritis, CAD, COPD, CVA, DM, Hyperlipidemia, Hypertension, Malignancy, Thyroid Disfunction - Past Medical History Cardiac Medical History: Reports: Hx Hypertension Pulmonary Medical History: Reports: Hx Asthma Endocrine Medical History: Reports: Hx Diabetes Mellitus Type 2, Hx Hypothyroidism Renal/ Medical History: Reports: Hx Kidney Stones, Hx Ovarian Cysts. Denies: Hx Peritoneal Dialysis GI Medical History: Reports: Hx Gastroesophageal Reflux Disease Musculoskeletal Medical History: Reports Hx Musculoskeletal Trauma Traumatic Medical History: Reports: Hx Fractures - Foot Past Surgical History: Reports: Hx Kidney (Renal Surgery) - stones, Hx Orthopedic Surgery - right foot, Hx Tonsillectomy - Immunizations Immunizations up to date: Yes Hx Diphtheria, Pertussis, Tetanus Vaccination: Yes Review of Systems - Review of Systems Notes: My Normal Review Basic REVIEW OF SYSTEMS: CONSTITUTIONAL : Denies fever, chills, or sweats. Denies recent illness. EENT: Left ear pain RESPIRATORY: Cough MUSCULOSKELETAL: Denies neck or back pain or joint pain or swelling. SKIN: Denies rash or skin lesions. NEUROLOGICAL: Denies altered mental status or loss of consciousness. Denies headache. Denies weakness or paralysis or loss of use of either side. Denies problems with gait or speech. Denies sensory or motor loss. ALL OTHER SYSTEMS REVIEWED AND NEGATIVE. Physical Exam - Vital signs Vitals: Temp Pulse Resp BP Pulse Ox 98 F 99 22 H 194/89 H 95 11/27/18 02:24 11/27/18 02:24 11/27/18 02:24 11/27/18 02:24 11/27/18 02:24 - Notes Notes: General Appearance: Well nourished, alert, cooperative, no acute distress, moderate obvious discomfort. Vitals: reviewed, See vital signs table. Head: no swelling or tenderness to the head Eyes: PERRL, EOMI, Conjuctiva clear Mouth: No decreasd moisture Ear: Normal-appearing right tympanic membrane. Left TM is erythematous and bulging. He does not appear to yet be ruptured but is very tense. Neck: Supple, no neck tenderness, No neck swelling Neuro: speech clear, oriented x 3, normal affect, responds appropriately to questions. Course - Re-evaluation Re-evalutation: 11/27/18 05:36 Patient appears to have an otitis media. Being that she has hearing loss in the ear in conjunction with this and the fact that the TM is very bulging painful will have her follow-up with your nose and throat physician. I gave her the phone number to Dr. Denton. I informed her to call his office for close follow- up appointment. I encouraged her return to ER if she has fevers, vomiting, worsening pain, or she feels unwell. Patient has a hydrocodone in her list but she says that she cannot take opiates however she does have some nausea vomiting when she takes them. She says she takes nausea medicine with it and she does not have the symptoms. Due to her significant pain we will give her a small course of Varney with some Zofran so that she can have some symptomatic relief until the antibiotics help improve her symptoms. Dictation of this chart was performed using voice recognition software; therefore, there may be some unintended grammatical errors. 11/27/18 05:40 Review the patient's chart I realized I forgot to put down Dr. Denton's office phone number. I therefore called the patient and got her voicemail. I left Dr. Denton's information on her voicemail including his office phone number. - Vital Signs Vital signs: Temp Pulse Resp BP Pulse Ox 98.2 F 95 20 175/80 H 99 11/27/18 04:50 11/27/18 04:50 11/27/18 04:50 11/27/18 04:50 11/27/18 04:50 Discharge - Discharge Clinical Impression: Ear pain, left Otitis media Qualifiers: Otitis media type: unspecified Chronicity: acute Qualified Code(s): H66.90 - Otitis media, unspecified, unspecified ear Condition: Good Disposition: HOME, SELF-CARE Additional Instructions: You have what appears to be infection behind the left ear with a lot of pressure. Currently it does not appear the eardrum is ruptured as of yet. Please take antibiotics as prescribed. Please call Dr. Denton, ENT physician, in the morning to make a close follow-up appointment for reevaluation of your ear especially since you are having a hard time hearing with that ear. Please return to the ER immediately if you have worsening pain, vomiting, or blood coming from the ear. I prescribed a medication called Varney. This is stronger pain medicine to take when your pain is more severe. Please be aware that Varney does have Tylenol (acetaminophen) in it. Please make sure you do not take more than 4000 mg of acetaminophen a day. Do not drive or care for children after you have taken this medication they will make you sleepy and sometimes impair judgment. Prescriptions: Amoxicillin 2 tab PO TID #42 tab Referrals: YUSEF DENTON DO [ASSOCIATE] - Follow up in 3-5 days
[2018-11-27] MEDS ORDERED: ONDANSETRON ODT 4 MG TAB (6 TAB/ER DISP) PO PRN (04:17)
[2018-11-27] MEDS ORDERED: HYDROCODONE/ACETAMINOPHEN 5-325 MG TABLET PO ONE (04:17)
[2018-11-27] MEDS ORDERED: ONDANSETRON 4 MG TAB.RAPDIS PO ONE (04:17)
[2018-11-27 04:57] VITALS: BP 175/80
== END 2018-11-27 04:50 | disposition home or self-care (01) ==
LOC: ER 02:18
DX: H66.90 Otitis media, unspecified, unspecified ear (principal); H92.02 Otalgia, left ear; H91.92 Unspecified hearing loss, left ear; R05 Cough; I10 Essential (primary) hypertension; J45.909 Unspecified asthma, uncomplicated; E11.9 Type 2 diabetes mellitus without complications; Z91.018 Allergy to other foods; Z91.048 Other nonmedicinal substance allergy status
CPT/HCPCS: 99282; S0119

== ENCOUNTER → 2018-12-29 | Outpatient (CLI) | payer BC ==
--- NOTE | 2018-12-30 08:52 | RADIOLOGY REPORT (SQ) ---
EXAM DESCRIPTION: U/S THYROID/SFT TISS HD NECK COMPLETED DATE/TIME: 12/29/2018 5:09 pm REASON FOR STUDY: (E07.89) OTHER SPECIFIED DISORDERS OF THYROID E07.89 OTHER SPECIFIED DISORDERS OF THYROID COMPARISON: None. TECHNIQUE: Dynamic and static ramires-scale images acquired of the thyroid gland. Selected additional c olor/power Doppler images recorded. All images stored to PACS. LIMITATIONS: None. FINDINGS: RIGHT LOBE: Normal size. The gland is heterogeneous throughout. No cystic or solid frankie s. LEFT LOBE: Normal size. Heterogeneous echotexture throughout. No cystic or solid masses. ISTHMUS: Normal size. Heterogeneous echotexture. No cystic or solid masses. OTHER: No other significant finding. IMPRESSION: Heterogeneous echogenicity throughout the thyroid gland. No focal thyroid nodules. TECHNICAL DOCUMENTATION: JOB ID: [id number] NCR [employer]- All Rights Reserved Reading location - IP/workstation name: [email or web address]
== END ==
LOC: RAD 16:36
PROVIDERS: ATTEND Otolaryngology
DX: E07.89 Other specified disorders of thyroid (principal)
CPT/HCPCS: 76536

== ENCOUNTER 2020-01-13 22:18 | Emergency (ER) | payer BC, OTHER ==
[2020-01-13] MEDS ORDERED: ONDANSETRON HCL INJ/PF 4 MG/2 ML SDV IV ONE (23:20)
[2020-01-13] MEDS ORDERED: NORMAL SALINE 1000 ML 1,000 ML IV ONE (23:20)
--- NOTE | 2020-01-13 23:22 | ER Document Report ---
ED Medical Screen (RME) - General Chief Complaint: Headache Stated Complaint: HEADACHE Time Seen by Provider: 01/13/20 23:16 Primary Care Provider: YUSEF DENTON DO [Primary Care Provider] - Follow up as needed Notes: HPI: 44-year-old obese female with history of diabetes, hypertension presenting with 4 days of severe frontal and posterior headache slight blurring of vision no chest pain no shortness of breath no abdominal pain but has had multiple episodes of vomiting daily. No history of headaches this bad. Patient states she does take lisinopril and hydrochlorothiazide for blood pressure but has been throwing up repeatedly throughout the day and does not know for sure that she has kept her blood pressure medications down PHYSICAL EXAMINATION: Patient appears mildly uncomfortable. Patient is mildly tachycardic with a heart rate apically of 104 on my exam. Lung sounds are clear to auscultation. No abdominal pain on palpation I have greeted and performed a rapid initial assessment of this patient. A comprehensive ED assessment and evaluation of the patient, analysis of test results and completion of medical decision making process will be conducted by an additional ED providers. TRAVEL OUTSIDE OF THE [place] IN LAST 30 DAYS: No - Related Data Allergies/Adverse Reactions: pineapple [Pineapple] Allergy (Severe, Verified 12/01/18 13:50) Blisters hydrocodone [Hydrocodone] Adverse Reaction (Severe, Verified 12/01/18 13:50) Patient states "Really bad Headache" Past Medical History - Past Medical History Cardiac Medical History: Reports: Hx Hypertension Pulmonary Medical History: Reports: Hx Asthma Neurological Medical History: Endocrine Medical History: Reports: Hx Diabetes Mellitus Type 2, Hx Hypothyroidism Renal/ Medical History: Reports: Hx Kidney Stones, Hx Ovarian Cysts. Denies: Hx Peritoneal Dialysis GI Medical History: Reports: Hx Gastroesophageal Reflux Disease Musculoskeltal Medical History: Reports Hx Musculoskeletal Trauma Traumatic Medical History: Reports: Hx Fractures - Foot Past Surgical History: Reports: Hx Kidney (Renal Surgery) - stones, Hx Orthope dic Surgery - right foot, Hx Tonsillectomy - Immunizations Immunizations up to date: Yes Hx Diphtheria, Pertussis, Tetanus Vaccination: Yes Physical Exam - Vital signs Vitals: Temp Pulse Resp BP Pulse Ox 98.7 F 124 H 24 H 186/106 H 94 01/13/20 22:23 01/13/20 22:23 01/13/20 22:23 01/13/20 22:23 01/13/20 22:23 Course - Vital Signs Vital signs: Temp Pulse Resp BP Pulse Ox 98.7 F 124 H 24 H 186/106 H 94 01/13/20 22:23 01/13/20 22:23 01/13/20 22:23 01/13/20 22:23 01/13/20 22:23 Doctor's Discharge - Discharge Referrals: YUSEF DENTON DO [Primary Care Provider] - Follow up as needed
[2020-01-14 00:20] LABS: ABSOLUTE BASOPHILS # (AUTO) 0.1 10^3/uL (0.0-0.2); ABSOLUTE EOSINOPHILS # (AUTO) 0.7 10^3/uL (0.0-0.6); ABSOLUTE LYMPHOCYTES (AUTO) 2.8 10^3/uL (0.5-4.7); ABSOLUTE MONOCYTES (AUTO) 0.7 10^3/uL (0.1-1.4); ABSOLUTE NEUT (AUTO) 7.4 10^3/uL (1.7-8.2); BASOPHILS % (AUTO) 0.5 % (0-2); EOSINOPHILS % (AUTO) 6.2 % (0-6); HEMATOCRIT 41.3 % (36.0-47.0); HEMOGLOBIN 13.7 g/dL (12.0-15.5); LYMPHOCYTES % (AUTO) 23.9 % (13-45); MEAN CORPUSCULAR HEMOGLOBIN 29.5 pg (27.0-33.4); MEAN CORPUSCULAR HGB CONC 33.1 g/dL (32.0-36.0); MEAN CORPUSCULAR VOLUME 89 fl (80-97); MONOCYTES % (AUTO) 5.8 % (3-13); PLATELET COUNT 309 10^3/uL (150-450); RED BLOOD COUNT 4.63 10^6/uL (3.72-5.28); RED CELL DISTRIBUTION WIDTH 14.2 % (11.5-14.0); SEGMENTED NEUTROPHILS % (AUTO) 63.6 % (42-78); TOTAL CELLS COUNTED % (AUTO) 100 %; WHITE BLOOD COUNT 11.6 10^3/uL (4.0-10.5)
[2020-01-14 00:25] LABS: APPEARANCE,URINE SLIGHTLY-CLOUDY; BILIRUBIN,URINE NEGATIVE (NEGATIVE); COLOR,URINE YELLOW; GLUCOSE, URINE 50 mg/dL (NEGATIVE); KETONES,URINE NEGATIVE (NEGATIVE); LEUKOCYTE ESTERASE,URINE TRACE (NEGATIVE); NITRITE,URINE NEGATIVE (NEGATIVE); PROTEIN,URINE 30 mg/dL (NEGATIVE); URINE SPECIFIC GRAVITY 1.027
[2020-01-14 00:26] LABS: INTERNATIONAL RATION (INR) 1.19; PROTHROMBIN TIME 15.1 SEC (11.4-15.4)
--- NOTE | 2020-01-14 00:27 | RADIOLOGY REPORT (SQ) ---
INDICATION: severe headache. COMPARISON: None CORRELATION: None TECHNIQUE: Noncontrast spiral axial CT images were obtained from the skull base to vertex. This exam was performed according to our departmental dose-optimization program, which includes automated exposure control, adjustment of the mA and/or kV according to patient size and/or use of iterative reconstruction techniques. FINDINGS: There is no evidence of acute intracranial hemorrhage, midline shift, mass effect or mass lesion. Carmona-white differentiation is normal. There is no evidence of acute large territory infarct. Ventricles and extracerebral spaces are within normal limits, for age. The visualized paranasal sinuses are grossly clear. The orbits and eyeballs are unremarkable. The mastoid air cells are clear. Skull base and calvarium appear intact. IMPRESSION: No acute intracranial process is identified.
[2020-01-14 00:32] LABS: ALBUMIN 3.6 g/dL (3.5-5.0); ALKALINE PHOSPHATASE 111 U/L (38-126); ANION GAP 5 (5-19); ASPARTATE AMINO TRANSFERASE 195 U/L (14-36); BILIRUBIN,DIRECT 0.1 mg/dL (0.0-0.4); BILIRUBIN,TOTAL 0.4 mg/dL (0.2-1.3); BLOOD UREA NITROGEN 20 mg/dL (7-20); CALCIUM 9.3 mg/dL (8.4-10.2); CARBON DIOXIDE 30 mmol/L (22-30); CHLORIDE 97 mmol/L (98-107); GLUCOSE 289 mg/dL (75-110); POTASSIUM 4.6 mmol/L (3.6-5.0); TOTAL PROTEIN 6.7 g/dL (6.3-8.2)
[2020-01-14] MEDS ORDERED: ONDANSETRON HCL INJ/PF 4 MG/2 ML SDV ONE (02:29)
[2020-01-14] MEDS ORDERED: DIPHENHYDRAMINE HCL 50 MG/ML VIAL IV ONE (03:50)
[2020-01-14] MEDS ORDERED: METOCLOPRAMIDE HCL INJ/PF 10 MG/2 ML SDV IV ONE (03:50)
[2020-01-14] MEDS ORDERED: KETOROLAC TROMETHAMINE INJ/PF 30 MG/1 ML SDV IV ONE (03:51)
[2020-01-14] MEDS ORDERED: MORPHINE SULFATE 10 MG/ML INJ IV ONE (03:51)
--- NOTE | 2020-01-14 03:52 | ER Document Report ---
ED Headache - General Chief Complaint: Headache Stated Complaint: HEADACHE Time Seen by Provider: 01/13/20 23:16 Notes: Patient is a 44-year-old female that comes emergency department for chief complaint of headache. Headache is in the front on the left side and also radiating around to the back. She states that this started 4 days ago, she states it started mildly and slowly progressed to become much worse with throbbing pain, nausea, light sensitivity, and vomiting. She states she vomited 4 times today because of the headache. She denies neck pain or stiffness, trauma, fever, focal numbness or weakness. She only rarely gets headaches and is not treated for them. Past medical history of type 2 diabetes, hypertension, morbid obesity. TRAVEL OUTSIDE OF THE [place] IN LAST 30 DAYS: No - Related Data Allergies/Adverse Reactions: pineapple [Pineapple] Allergy (Severe, Verified 12/01/18 13:50) Blisters hydrocodone [Hydrocodone] Adverse Reaction (Severe, Verified 12/01/18 13:50) Patient states "Really bad Headache" Home Medications: cetrizine, HCTZ, lisinopril, atorvastatin, omeprazole,glyburide, metformin, levothyroxine Past Medical History - General Information source: Patient - Social History Smoking Status: Current Every Day Smoker Family History: Reviewed & Not Pertinent, Arthritis, CAD, COPD, CVA, DM, Hyperlipidemia, Hypertension, Malignancy, Thyroid Disfunction Patient has homicidal ideation: No - Past Medical History Cardiac Medical History: Reports: Hx Hypertension Pulmonary Medical History: Reports: Hx Asthma Neurological Medical History: Endocrine Medical History: Reports: Hx Diabetes Mellitus Type 2, Hx Hypothyroidism Renal/ Medical History: Reports: Hx Kidney Stones, Hx Ovarian Cysts. Denies: Hx Peritoneal Dialysis GI Medical History: Reports: Hx Gastroesophageal Reflux Disease Musculoskeletal Medical History: Reports Hx Musculoskeletal Trauma Traumatic Medical History: Reports: Hx Fractures - Foot Past Surgical History: Reports: Hx Kidney (Renal Surgery) - stones, Hx Orthopedic Surgery - right foot, Hx Tonsillectomy - Immunizations Immunizations up to date: Yes Hx Diphtheria, Pertussis, Tetanus Vaccination: Yes Review of Systems - Review of Systems Constitutional: No symptoms reported EENT: No symptoms reported Cardiovascular: No symptoms reported Respiratory: No symptoms reported Gastrointestinal: See HPI Genitourinary: No symptoms reported Female Genitourinary: No symptoms reported Musculoskeletal: No symptoms reported Skin: No symptoms reported Hematologic/Lymphatic: No symptoms reported Neurological/Psychological: See HPI Physical Exam - Vital signs Vitals: Temp Pulse Resp BP Pulse Ox 98.7 F 124 H 24 H 186/106 H 94 01/13/20 22:23 01/13/20 22:23 01/13/20 22:23 01/13/20 22:23 01/13/20 22:23 - Notes Notes: GENERAL: Alert, interacts well. No acute distress. Talkative and well- appearing. HEAD: Normocephalic, atraumatic. EYES: Pupils equal, round, and reactive to light. Extraocular movements intact. ENT: Oral mucosa moist, tongue midline. Oropharynx unremarkable. Airway patent. Nares patent, sinuses non-tender, ear canals unremarkable, TM's intact. NECK: Full range of motion. Supple. Trachea midline. No lymphadenopathy. No nuchal rigidity. LUNGS: Clear to auscultation bilaterally, no wheezes, rales, or rhonchi. No respiratory distress. Non-tender chest wall. HEART: Borderline tachycardic, normal rhythm, no murmur ABDOMEN: Soft, non-tender. No guarding or rigidity EXTREMITIES: Moves all 4 extremities spontaneously. No edema, normal radial and dorsalis pedis pulses bilaterally. No cyanosis. BACK: no cervical, thoracic, lumbar midline tenderness. No saddle anesthesia, normal distal neurovascular exam. Moves all extremities in full range of motion. NEUROLOGICAL: Alert and oriented x3. Normal speech. Cranial nerves II through XII grossly intact. Strength 5/5 in all extremities. PSYCH: Normal affect, normal mood. SKIN: Warm, dry, normal turgor. No rashes or lesions noted. Course - Re-evaluation Re-evalutation: CBC shows mild leukocytosis with elevation of eosinophils. Patient is treated for seasonal allergies. I did discuss this with the patient. She has no wheezing or signs of allergic reaction on exam, nonspecific. Chemistry shows elevated LFTs with ALT greater than AST. I discussed this with patient, she states she does not recall this from the past. Patient is morbidly obese. I suspect this is fatty infiltration of the liver, patient has absolutely no tenderness in the right upper quadrant or right flank on exam, I discussed recommendations and patient states she will have this closely repeated with primary care. Urinalysis shows elevated specific gravity and glucose, glucose is elevated on chemistry but there is no acidosis or ketones in the urine. Patient's complaint is a throbbing headache, after medications on reevaluation patient smiling, states her headache is completely gone, states she is ready to go home. Vital signs now unremarkable. I did review CT of the head from triage and this is showing no acute findings. Patient has no nuchal rigidity, temperature reported from home was maximum was 99.5. She denies chills. Based on her appearance, resolution with treatment, work-up, very low suspicion of acute emergent intracranial abnormality. Discussed treatment options and provided with Reglan for home along with [id number] medications. Discussed close primary care follow-up and return precautions. Patient states understanding and agreement with plan. Stable and well-appearing at time of discharge. - Vital Signs Vital signs: Temp Pulse Resp BP Pulse Ox 99.5 F 110 H 21 H 111/63 95 01/14/20 01:58 01/14/20 01:58 01/14/20 05:01 01/14/20 05:00 01/14/20 05:01 - Laboratory Result Diagrams: 01/14/20 00:04 01/14/20 00:04 Laboratory results interpreted by me: 01/14/20 01/14/20 01/14/20 00:04 00:04 00:04 WBC 11.6 H RDW 14.2 H Eos % (Auto) 6.2 H Absolute Eos (auto) 0.7 H Sodium 132.4 L Chloride 97 L Glucose 289 H AST 195 H ALT 291 H Urine Protein 30 H Urine Glucose (UA) 50 H Urine Urobilinogen 4.0 H Ur Leukocyte Esterase TRACE H Discharge - Discharge Clinical Impression: Headache Qualifiers: Headache type: unspecified Headache chronicity pattern: acute headache Intractability: not intractable Qualified Code(s): R51 - Headache Condition: Stable Disposition: HOME, SELF-CARE Additional Instructions: Your evaluation, symptoms, and resolution with treatment are very suggestive of a migraine. You can combine the Reglan medication with [id number] medications such as Tylenol, ibuprofen, Benadryl for headaches at home. Follow-up with primary care for additional evaluation and management of migraines. Your liver function tests were also elevated will need to be rechecked with primary care. Return if you worsen including returned or severe headache, vomiting, fever, or any other concerning or worsening symptoms. Prescriptions: Metoclopramide HCl [Reglan] 5 mg PO ASDIR PRN #30 tablet PRN Reason: Forms: Return to Work
[2020-01-14 05:09] VITALS: BP 111/63
== END 2020-01-14 05:20 | disposition home or self-care (01) ==
LOC: ER 22:18
DX: R51 Headache (principal); H53.149 Visual discomfort, unspecified; R11.2 Nausea with vomiting, unspecified; D72.1 Eosinophilia; R74.0 Nonspecific elevation of levels of transaminase and lactic acid dehydrogenase [LDH]; E66.01 Morbid (severe) obesity due to excess calories; E11.9 Type 2 diabetes mellitus without complications; I10 Essential (primary) hypertension; E03.9 Hypothyroidism, unspecified; K21.9 Gastro-esophageal reflux disease without esophagitis; J45.909 Unspecified asthma, uncomplicated; F17.200 Nicotine dependence, unspecified, uncomplicated; Z79.899 Other long term (current) drug therapy; Z79.84 Long term (current) use of oral hypoglycemic drugs; Z91.018 Allergy to other foods
CPT/HCPCS: 99284; 96361; 96374; 96375; 36415; 85025; 85610; 80053; 81001; 70450; J1200; J1885; J2765; J2270; J2405; J7030

== ENCOUNTER 2020-06-05 17:47 | Observation (INO) | payer BC ==
--- NOTE | 2020-06-05 19:41 | ER Document Report ---
ED Medical Screen (RME) - General Stated Complaint: DIFFICULTY BREATHING SWOLLEN LEGS CHEST PAIN Time Seen by Provider: 06/05/20 19:36 Notes: Patient presents complaining of difficulty breathing for the past 3 days with cough. Patient states that difficulty breathing is worse with exertion. Patient complains of upper back pain. Patient also complains of chills. Patient complains of peripheral edema. Patient has a history of asthma and diabetes. I have greeted and performed a rapid initial assessment of this patient. A comprehensive ED assessment and evaluation of the patient, analysis of test results and completion of the medical decision making process will be conducted by additional ED providers. TRAVEL OUTSIDE OF THE [place] IN LAST 30 DAYS: No - Related Data Allergies/Adverse Reactions: pineapple [Pineapple] Allergy (Severe, Verified 12/01/18 13:50) Blisters hydrocodone [Hydrocodone] Adverse Reaction (Severe, Verified 12/01/18 13:50) Patient states "Really bad Headache" Past Medical History - Past Medical History Cardiac Medical History: Reports: Hx Hypertension Pulmonary Medical History: Reports: Hx Asthma Neurological Medical History: Endocrine Medical History: Reports: Hx Diabetes Mellitus Type 2, Hx Hypothyroidism Renal/ Medical History: Reports: Hx Kidney Stones, Hx Ovarian Cysts. Denies: Hx Peritoneal Dialysis GI Medical History: Reports: Hx Gastroesophageal Reflux Disease Musculoskeltal Medical History: Reports Hx Musculoskeletal Trauma Traumatic Medical History: Reports: Hx Fractures - Foot Past Surgical History: Reports: Hx Kidney (Renal Surgery) - stones, Hx Orthopedic Surgery - right foot, Hx Tonsillectomy - Immunizations Immunizations up to date: Yes Hx Diphtheria, Pertussis, Tetanus Vaccination: Yes Physical Exam - Vital signs Vitals: Temp Pulse Resp BP Pulse Ox 98.1 F 85 24 H 155/76 H 95 06/05/20 18:14 06/05/20 18:14 06/05/20 18:14 06/05/20 18:14 06/05/20 18:14 - Respiratory Respiratory status: Tachypnea Breath sounds: Nonproductive cough. No: Rales, Rhonchi, Stridor, Wheezing Course - Vital Signs Vital signs: Temp Pulse Resp BP Pulse Ox 98.1 F 85 24 H 155/76 H 95 06/05/20 18:14 06/05/20 18:14 06/05/20 18:14 06/05/20 18:14 06/05/20 18:14
--- NOTE | 2020-06-05 20:51 | RADIOLOGY REPORT (SQ) ---
EXAM DESCRIPTION: XR CHEST 1 VIEW COMPLETED DATE/TME: 06/05/2020 19:40 CLINICAL HISTORY: 44 years, Female, cough, sob COMPARISON: 12/01/2018. TECHNIQUE: PA view of the chest FINDINGS: Mild cardiomegaly. No suspicious mediastinal widening. Mild bilateral central bronchial wall thickening. Mild bilateral lower lobe infiltrates slightly greater on the right. Small right pleural effusion. IMPRESSION: Abnormal chest x-ray which could be secondary to pneumonia. Viral etiologies not excluded. Presence of a right pleural effusion is currently not seen with covid. By radiographic appearance, the possibility of CHF cannot be excluded.
--- NOTE | 2020-06-05 21:09 | EKG REPORT ---
SEVERITY:- NORMAL ECG - SINUS RHYTHM : Confirmed by: Kiran Cordero MD 05-Jun-2020 21:09:16
--- NOTE | 2020-06-06 00:07 | ER Document Report ---
ED General - General Chief Complaint: Shortness Of Breath Stated Complaint: DIFFICULTY BREATHING SWOLLEN LEGS CHEST PAIN Time Seen by Provider: 06/05/20 19:36 Primary Care Provider: JIMMIE MARIN FNP [Primary Care Provider] - Follow up as needed TRAVEL OUTSIDE OF THE [place] IN LAST 30 DAYS: No - HPI Notes: 44-year-old female presents with shortness of breath. Patient states for the past 3 days she has had progressively worsening shortness of breath. States that she will become short of breath walking across the house were trying to pull up her clothing. Shortness of breath worse with exertion. Nonproductive cough. She is noted that her legs are swollen, states her skin feels very tight. She reports she is gained almost 40 pounds in the last 3 days. She is unable to sleep flat at night. She denies previous history of CHF. She denies chest pain. Reports mid back pain. No known Covid exposures, states that she barely leaves her house. No previous history of DVT. She has been otherwise active at home except for the past 3 days. No abdominal pain or vomiting, states she is chronic diarrhea due to medications. - Related Data Allergies/Adverse Reactions: pineapple [Pineapple] Allergy (Severe, Verified 12/01/18 13:50) Blisters hydrocodone [Hydrocodone] Adverse Reaction (Severe, Verified 12/01/18 13:50) Patient states "Really bad Headache" Past Medical History - General Information source: Patient - Social History Smoking Status: Current Every Day Smoker Family History: Reviewed & Not Pertinent, Arthritis, CAD, COPD, CVA, DM, Hyperlipidemia, Hypertension, Malignancy, Thyroid Disfunction - Past Medical History Cardiac Medical History: Reports: Hx Hypertension Pulmonary Medical History: Reports: Hx Asthma Neurological Medical History: Endocrine Medical History: Reports: Hx Diabetes Mellitus Type 2, Hx Hypothyroidism Renal/ Medical History: Reports: Hx Kidney Stones, Hx Ovarian Cysts. Denies: Hx Peritoneal Dialysis GI Medical History: Reports: Hx Gastroesophageal Reflux Disease Musculoskeletal Medical History: Reports Hx Musculoskeletal Trauma Traumatic Medical History: Reports: Hx Fractures - Foot Past Surgical History: Reports: Hx Kidney (Renal Surgery) - stones, Hx Orthopedic Surgery - right foot, Hx Tonsillectomy - Immunizations Immunizations up to date: Yes Hx Diphtheria, Pertussis, Tetanus Vaccination: Yes Review of Systems - Review of Systems Constitutional: denies: Fever EENT: No symptoms reported Cardiovascular: denies: Chest pain Respiratory: Cough, Short of breath Gastrointestinal: denies: Abdominal pain Genitourinary: denies: Burning Female Genitourinary: No symptoms reported Musculoskeletal: Leg swelling Skin: Change in color Hematologic/Lymphatic: No symptoms reported Neurological/Psychological: No symptoms reported Physical Exam - Vital signs Vitals: Temp Pulse Resp BP Pulse Ox 98.1 F 85 24 H 155/76 H 95 06/05/20 18:14 06/05/20 18:14 06/05/20 18:14 06/05/20 18:14 06/05/20 18:14 - General General appearance: Appears well, Alert - HEENT Head: Normocephalic, Atraumatic Extraocular movements intact: Yes Pupils: PERRL - Respiratory Respiratory status: No respiratory distress. No: Labored Breath sounds: Nonproductive cough, Rales - Bases - Cardiovascular Rhythm: Regular, Other Normal capillary refill: Yes - Abdominal Inspection: Obese Tenderness: Nontender - Back Back: No: Vertebra tenderness - Extremities General lower extremity: Edema - Tense - Neurological Neuro grossly intact: Yes Cognition: Normal Orientation: AAOx4 - Psychological Associated symptoms: Normal affect - Skin Skin Temperature: Warm Course - Re-evaluation Re-evalutation: 44-year-old female morbidly obese with history hypertension/DM/hypothyroid here with shortness of breath more so dyspnea on exertion, orthopnea and lower extrem ity edema. On exam she is overall well-appearing, she has rales at the bases, no current respiratory distress, 95% on room air. No fever. Lower extremities have tense edema. Suspecting likely new onset CHF. She had a chest x-ray done through triage which shows bilateral interstitial opacities, Covid versus other viral illness possibility as well, will obtain swab. Would have low suspicion for PE at this time, she is not tachycardic and has no history of previous clot. Will start with 40 mg IV Lasix 06/06/20 02:31 No leukocytosis or left shift. Electrolytes within normal limits Creatinine within normal limits Troponin negative There is slight elevation of BNP, this can be lower than expected given her obesity 06/06/20 02:36 Patient has had good urinary output in response to Lasix. She states that she is feeling better, her shortness of breath has improved and she is able to weigh in bed. Updated her on results. Plan for admission. 06/06/20 02:42 Discussed with hospitalist for admission - Vital Signs Vital signs: Temp Pulse Resp BP Pulse Ox 98.0 F 82 26 H 128/64 H 96 06/05/20 23:12 06/05/20 23:12 06/05/20 23:12 06/05/20 23:12 06/05/20 23:12 - Laboratory Result Diagrams: 06/06/20 00:15 06/06/20 00:15 Laboratory results interpreted by me: 06/06/20 06/06/20 06/06/20 00:00 00:15 00:15 Hgb 11.8 L Hct 35.1 L RDW 15.3 H Glucose 127 H C-Reactive Protein 40.4 H NT-Pro-B Natriuret Pep Urine Glucose (UA) >=500 H Urine Urobilinogen 2.0 H Ur Leukocyte Esterase TRACE H 06/06/20 00:15 Hgb Hct RDW Glucose C-Reactive Protein NT-Pro-B Natriuret Pep 359 H Urine Glucose (UA) Urine Urobilinogen Ur Leukocyte Esterase - Diagnostic Test Radiology reviewed: Image reviewed, Reports reviewed - EKG Interpretation by Me Additional EKG results interpreted by me: EKG is interpreted by me. Sinus rhythm, rate 87. Narrow QRS, QTC within normal limits. No ST segment elevation or depressions. Discharge - Discharge Clinical Impression: Dyspnea on exertion, Bilateral lower extremity edema, Person under investigat ion for COVID-19, Elevated brain natriuretic peptide (BNP) level Disposition: ADMITTED INPATIENT Admitting Provider: [facility] Unit Admitted: Telemetry Referrals: JIMMIE MARIN FNP [Primary Care Provider] - Follow up as needed
[2020-06-06] MEDS ORDERED: FUROSEMIDE INJ/PF 20 MG/2 ML SDV IV ONE (00:21)
[2020-06-06 00:29] LABS: ABSOLUTE BASOPHILS # (AUTO) 0.1 10^3/uL (0.0-0.2); ABSOLUTE EOSINOPHILS # (AUTO) 0.4 10^3/uL (0.0-0.6); ABSOLUTE LYMPHOCYTES (AUTO) 2.4 10^3/uL (0.5-4.7); ABSOLUTE MONOCYTES (AUTO) 0.5 10^3/uL (0.1-1.4); ABSOLUTE NEUT (AUTO) 6.1 10^3/uL (1.7-8.2); BASOPHILS % (AUTO) 0.8 % (0-2); EOSINOPHILS % (AUTO) 4.5 % (0-6); HEMATOCRIT 35.1 % (36.0-47.0); HEMOGLOBIN 11.8 g/dL (12.0-15.5); MEAN CORPUSCULAR HEMOGLOBIN 31.1 pg (27.0-33.4); MEAN CORPUSCULAR HGB CONC 33.5 g/dL (32.0-36.0); MEAN CORPUSCULAR VOLUME 93 fl (80-97); PLATELET COUNT 273 10^3/uL (150-450); RED BLOOD COUNT 3.78 10^6/uL (3.72-5.28); RED CELL DISTRIBUTION WIDTH 15.3 % (11.5-14.0); SEGMENTED NEUTROPHILS % (AUTO) 64.7 % (42-78); TOTAL CELLS COUNTED % (AUTO) 100 %; WHITE BLOOD COUNT 9.4 10^3/uL (4.0-10.5)
[2020-06-06 00:57] LABS: APPEARANCE,URINE CLEAR; BILIRUBIN,URINE NEGATIVE (NEGATIVE); COLOR,URINE YELLOW; GLUCOSE, URINE >=500 mg/dL (NEGATIVE); KETONES,URINE NEGATIVE (NEGATIVE); LEUKOCYTE ESTERASE,URINE TRACE (NEGATIVE); NITRITE,URINE NEGATIVE (NEGATIVE); PROTEIN,URINE NEGATIVE (NEGATIVE); URINE SPECIFIC GRAVITY 1.037
[2020-06-06 01:22] LABS: ALBUMIN 3.8 g/dL (3.5-5.0); ALKALINE PHOSPHATASE 112 U/L (38-126); ANION GAP 11 (5-19); ASPARTATE AMINO TRANSFERASE 28 U/L (14-36); BILIRUBIN,DIRECT 0.2 mg/dL (0.0-0.4); BILIRUBIN,TOTAL 0.6 mg/dL (0.2-1.3); BLOOD UREA NITROGEN 15 mg/dL (7-20); C-REACTIVE PROTEIN 40.4 mg/L (<10.0); CALCIUM 9.2 mg/dL (8.4-10.2); CARBON DIOXIDE 26 mmol/L (22-30); CHLORIDE 103 mmol/L (98-107); GLUCOSE 127 mg/dL (75-110); POTASSIUM 3.7 mmol/L (3.6-5.0); TOTAL PROTEIN 6.6 g/dL (6.3-8.2)
[2020-06-06 01:30] LABS: NT PRO BNP 359 pg/mL (<125)
[2020-06-06 01:32] LABS: TROPONIN I < 0.012 ng/mL
[2020-06-06 01:59] LABS: A TYPE INFLUENZA AG NEGATIVE (NEGATIVE); B INFLUENZA AG NEGATIVE (NEGATIVE)
[2020-06-06] MEDS ORDERED: ALBUTEROL SULFATE HFA (90 MCG/PUFF) 8 GM MDI IH PRN (03:36)
[2020-06-06] MEDS ORDERED: DEXTROSE 50%-WATER 25 GM/50 ML DISP.SYRIN IV PRN ×2 (03:41)
[2020-06-06] MEDS ORDERED: DEXTROSE 40% GEL 15 GM TUBE PO PRN ×2 (03:41)
[2020-06-06] MEDS ORDERED: GLUCAGON,HUMAN RECOMB 1 MG INJ IM PRN (03:41)
[2020-06-06] MEDS ORDERED: NICOTINE 14 MG/24 HR PATCH.TD24 TD PRN (03:48)
--- NOTE | 2020-06-06 04:25 | PDOC H&P ---
History of Present Illness Admission Date/PCP: 06/06/20 03:09 MORE OLIVEIRA Patient complains of: Shortness of breath History of Present Illness: KATY MICHAELS is a 44 year old female with a history of hypertension, diabetes, asthma and hypothyroidism who presents to ER with 3 days duration of worsening of shortness of breath, orthopnea, PND and leg swelling. She states that she has been experiencing progressively increasing shortness of breath over the past few weeks but the past 3 days it got worse and she was unable to move from one room to another without feeling short of breath. She also endorses a nonproductive cough for the past 3 days. She claims that she has gained about 40 pounds in the past 2 weeks. She denies any recent contact with sick patient. She also denies any fever, chills, chest pain, palpitation, dizziness/lightheadedness, nausea, vomiting, diarrhea, abdominal pain or any change in her urinary habits. She denies any history of sore throat or skin rash. Past Medical History Cardiac Medical History: Reports: Hypertension Pulmonary Medical History: Reports: Asthma Neurological Medical History: Endocrine Medical History: Reports: Diabetes Mellitus Type 2, Hypothyroidism GI Medical History: Reports: Gastroesophageal Reflux Disease Musculoskeltal Medical History: Hematology: Denies: Anemia Past Surgical History Past Surgical History: Reports: Orthopedic Surgery - right foot, Tonsillectomy Social History Information Source: Patient Smoking Status: Current Every Day Smoker Frequency of Alcohol Use: Occasional Hx Recreational Drug Use: No - Advance Directive Resuscitation Status: Full Code Family History Family History: Reviewed & Not Pertinent, Arthritis, CAD, COPD, CVA, DM, Hyperlipidemia, Hypertension, Malignancy, Thyroid Disfunction Parental Family History Reviewed: Yes Children Family History Reviewed: Yes Sibling(s) Family History Reviewed.: Yes Medication/Allergy Home Medications: Levothyroxine Sodium [Synthroid] 100 mcg PO QAM 10/06/16 Metformin HCl [Glucophage] 1,000 mg PO BID 10/06/16 Glyburide 5 mg PO BID 10/29/17 Hydrochlorothiazide 50 mg PO DAILY 10/29/17 Amoxicillin 2 tab PO TID #42 tab 11/27/18 Hydrocodone/Acetaminophen [[place] 5-325 mg Tablet] 1 tab PO PRN PRN 12/01/18 Ondansetron [Zofran Odt 4 mg Tablet] 1 tab PO PRN PRN 12/01/18 Metoclopramide HCl [Reglan] 5 mg PO ASDIR PRN #30 tablet 01/14/20 Allergies/Adverse Reactions: pineapple [Pineapple] Allergy (Severe, Verified 12/01/18 13:50) Blisters hydrocodone [Hydrocodone] Adverse Reaction (Severe, Verified 12/01/18 13:50) Patient states "Really bad Headache" Review of Systems Constitutional: PRESENT: weight gain. ABSENT: chills, fever(s), headache(s), weight loss Eyes: ABSENT: visual disturbances Ears: ABSENT: hearing changes Nose, Mouth, and Throat: ABSENT: as per HPI, headache(s), mouth pain, sore throat, vertigo, other Cardiovascular: PRESENT: as per HPI Respiratory: PRESENT: as per HPI Gastrointestinal: ABSENT: abdominal pain, constipation, diarrhea, hematemesis, hematochezia, nausea, vomiting Genitourinary: ABSENT: dysuria, hematuria Musculoskeletal: ABSENT: joint swelling Integumentary: ABSENT: rash, wounds Neurological: ABSENT: abnormal gait, abnormal speech, confusion, dizziness, focal weakness, syncope Psychiatric: ABSENT: anxiety, depression, homidical ideation, suicidal ideation Endocrine: ABSENT: cold intolerance, heat intolerance, polydipsia, polyuria Hematologic/Lymphatic: ABSENT: easy bleeding, easy bruising Physical Exam Vital Signs: Temp Pulse Resp BP Pulse Ox 98.1 F 74 26 H 160/64 H 100 06/06/20 03:22 06/06/20 03:22 06/05/20 23:12 06/06/20 03:22 06/06/20 03:22 Intake & Output 06/04/20 06/05/20 06/06/20 06:59 06:59 06:59 Weight 164.5 kg Additional comments: GENERAL APPEARANCE: Morbidly obese, not in acute respiratory distress HEENT: Normocephalic and atraumatic. No scleral icterus. PERRLA, moist oral mucosa NECK: Supple. No lymphadenopathy or tenderness. Difficult to appreciate carotid bruits or JVD due to body habitus CHEST: Symmetric. Nontender to palpation. LUNGS: Breath sounds are heard distantly due to body habitus. Has faint bibasilar crackles HEART: Regular rate and rhythm with normal S1 and S2. No murmurs, gallops, or rubs. ABDOMEN: Obese, soft, normoactive bowel sound, no direct or rebound tenderness. No organomegaly or mass appreciated. EXTREMITIES: No cyanosis or clubbing. Has +1 pitting edema up to mid fuentes MUSCULOSKELETAL: No deformity, atrophy or swelling noted PSYCHIATRIC: The patient is awake, alert, and oriented x3. Recent and remote memory is intact. Appropriate mood and affect. SKIN: Warm, dry, and well perfused. No lesions or rashes are noted. NEUROLOGIC: No focal sensory or motor deficits are noted. Results Laboratory Results: 06/06/20 00:15 06/06/20 00:15 06/06/20 06/06/20 06/06/20 00:00 00:15 00:15 WBC 9.4 RBC 3.78 Hgb 11.8 L Hct 35.1 L MCV 93 MCH 31.1 MCHC 33.5 RDW 15.3 H Plt Count 273 Seg Neutrophils % 64.7 Sodium 139.5 Potassium 3.7 Chloride 103 Carbon Dioxide 26 Anion Gap 11 BUN 15 Creatinine 0.66 Est GFR ( Amer) > 60 Glucose 127 H Calcium 9.2 Total Bilirubin 0.6 AST 28 Alkaline Phosphatase 112 C-Reactive Protein 40.4 H Total Protein 6.6 Albumin 3.8 Urine Color YELLOW Urine Appearance CLEAR Urine pH 7.0 Ur Specific [place] 1.037 Urine Protein NEGATIVE Urine Glucose (UA) >=500 H Urine Ketones NEGATIVE Urine Blood NEGATIVE Urine Nitrite NEGATIVE Ur Leukocyte Esterase TRACE H Urine WBC (Auto) 6 Urine RBC (Auto) 3 06/06/20 00:15 Troponin I < 0.012 NT-Pro-B Natriuret Pep 359 H Impressions: Chest X-Ray 06/05/20 19:40 IMPRESSION: Abnormal chest x-ray which could be secondary to pneumonia. Viral etiologies not excluded. Presence of a right pleural effusion is currently not seen with covid. By radiographic appearance, the possibility of CHF cannot be excluded. Assessment and Plan - Diagnosis (1) New onset of congestive heart failure Is this a current diagnosis for this admission?: Yes Plan: Patient presents with worsening of shortness of breath, orthopnea, and bilateral leg swelling Has bibasilar crackles on physical exam Chest x-ray shows mild cardiomegaly, right pleural effusion and bilateral infiltrates proBNP elevated at 359 Possibly new onset heart failure Started on Lasix 40 mg IV twice daily Fluid restriction, daily weight, strict I&O's Ordered echo for this a.m. (2) Person under investigation for COVID-19 Is this a current diagnosis for this admission?: Yes Plan: Patient presents with cough, shortness of breath Chest x-ray significant for bilateral infiltrates and right pleural effusion Patient currently saturating well on room air We will continue supportive management Follow-up with COVID-19 test result (3) Morbid obesity Is this a current diagnosis for this admission?: Yes Plan: Counseled and encouraged her on lifestyle modification measures including dietary change and exercise (4) Hypertension Is this a current diagnosis for this admission?: Yes Plan: Low-sodium diet, resume home medication (5) Diabetes Qualifiers: Diabetes mellitus type: type 2 Is this a current diagnosis for this admission?: Yes Plan: Placed her on diabetic diet Sliding scale insulin, Accu-Chek and hypoglycemia protocol (6) Recurrent right pleural effusion Is this a current diagnosis for this admission?: Yes Plan: Could possibly be due to parapneumonic effusion versus heart failure Chest x-ray shows bilateral infiltrates and small right pleural effusion Will place her on azithromycin 500 mg p.o. daily - Time Time Spent with patient: 35 or more minutes Total Critical Time (Minutes): 35 Smoking Cessation Education: 3 to 10 minutes Medications reviewed and adjusted accordingly: Yes Anticipated Discharge Disposition: Home, Self Care Anticipated Discharge Timeframe: within 48 hours - Inpatient Certification Medical Necessity: Failure to Improve With Outpatient Therapy, Significant Comorbidiites Make Outpatient Treatment Too Risky Post Hospital Care: D/C or Transfer Summary
[2020-06-06] MEDS: INSULIN REG, HUMAN 100 UNIT/ML 3 ML VIAL (PYX) SUBCUT SCH ×2 (08:30→12:40)
[2020-06-06] MEDS: FAMOTIDINE 20 MG TABLET PO SCH ×2 (09:54→23:15)
[2020-06-06] MEDS: CHOLECALCIFEROL (D3) 1,000 UNIT (25 MCG) TABLET PO SCH (09:55)
[2020-06-06] MEDS: ZINC SULFATE 220 MG CAPSULE PO SCH (09:55)
[2020-06-06] MEDS: ASCORBIC ACID 500 MG TABLET PO SCH ×2 (09:56→17:05)
[2020-06-06] MEDS: FUROSEMIDE INJ/PF 40 MG/4 ML SDV IV SCH ×2 (09:56→23:15)
[2020-06-06] MEDS: ENOXAPARIN SODIUM INJ 40 MG/0.4 ML DISP.SYRIN SUBCUT SCH (09:56)
[2020-06-06] MEDS: AZITHROMYCIN 250 MG TABLET PO SCH (09:56)
--- NOTE | 2020-06-06 15:18 | PDOC PROGRESS REPORT ---
Subjective Progress Note for:: 06/06/20 Subjective:: KATY MICHAELS is a 44 year old female with a history of hypertension, diabetes, asthma and hypothyroidism who presents to ER with 3 days duration of worsening of shortness of breath, orthopnea, PND and leg swelling. She states that she has been experiencing progressively increasing shortness of breath over the past few weeks but the past 3 days it got worse and she was unable to move from one room to another without feeling short of breath. She also endorses a nonproductive cough for the past 3 days. She claims that she has gained about 40 pounds in the past 2 weeks. She denies any recent contact with sick patient. She also denies any fever, chills, chest pain, palpitation, dizziness/lightheadedness, nausea, vomiting, diarrhea, abdominal pain or any change in her urinary habits. She denies any history of sore throat or skin rash. D1 hospital stay 06/06/20. She was seen and examined at bedside. She reports improvement of her shortness of breath. She denied any chest pain, palpitations. No previous stress test. Upon further history she did confirm about a 30 pound weight gain for the past several weeks, with orthopnea, leg swelling and PND. She denied any prior heart condition, no previous heart attacks. Echo was done awaiting reading. She is currently on Lasix 40 IV twice daily. Reason For Visit: DYSPNEA ON EXERTION,PUI,ELEVATED BNP LEVEL, Physical Exam Vital Signs: Temp Pulse Resp BP Pulse Ox 98.1 F 65 23 H 145/67 H 97 06/06/20 11:58 06/06/20 14:00 06/06/20 11:58 06/06/20 11:58 06/06/20 11:58 Intake & Output 06/05/20 06/06/20 06/07/20 06:59 06:59 06:59 Intake Total 200 Balance 200 Weight 164.5 kg General appearance: PRESENT: cooperative, mild distress, morbidly obese Head exam: PRESENT: atraumatic, normocephalic Eye exam: PRESENT: EOMI, PERRLA Mouth exam: PRESENT: moist Neck exam: PRESENT: full ROM Respiratory exam: PRESENT: crackles, symmetrical. ABSENT: unlabored Cardiovascular exam: PRESENT: RRR, +S1, +S2 Pulses: PRESENT: +2 pedal pulses bilateral Vascular exam: PRESENT: normal capillary refill, pallor GI/Abdominal exam: PRESENT: normal bowel sounds, soft. ABSENT: rebound, tenderness Extremities exam: PRESENT: pedal edema, +2 edema Musculoskeletal exam: PRESENT: full ROM Neurological exam: PRESENT: alert, awake, oriented to person, oriented to place, oriented to time, oriented to situation Psychiatric exam: PRESENT: normal mood Skin exam: PRESENT: normal color Results Laboratory Results: 06/06/20 00:15 06/06/20 00:15 06/06/20 06/06/20 06/06/20 00:00 00:15 00:15 WBC 9.4 RBC 3.78 Hgb 11.8 L Hct 35.1 L MCV 93 MCH 31.1 MCHC 33.5 RDW 15.3 H Plt Count 273 Seg Neutrophils % 64.7 Sodium 139.5 Potassium 3.7 Chloride 103 Carbon Dioxide 26 Anion Gap 11 BUN 15 Creatinine 0.66 Est GFR ( Amer) > 60 Glucose 127 H Calcium 9.2 Total Bilirubin 0.6 AST 28 Alkaline Phosphatase 112 C-Reactive Protein 40.4 H Total Protein 6.6 Albumin 3.8 Urine Color YELLOW Urine Appearance CLEAR Urine pH 7.0 Ur Specific [place] 1.037 Urine Protein NEGATIVE Urine Glucose (UA) >=500 H Urine Ketones NEGATIVE Urine Blood NEGATIVE Urine Nitrite NEGATIVE Ur Leukocyte Esterase TRACE H Urine WBC (Auto) 6 Urine RBC (Auto) 3 06/06/20 00:15 Troponin I < 0.012 NT-Pro-B Natriuret Pep 359 H Impressions: Chest X-Ray 06/05/20 19:40 IMPRESSION: Abnormal chest x-ray which could be secondary to pneumonia. Viral etiologies not excluded. Presence of a right pleural effusion is currently not seen with covid. By radiographic appearance, the possibility of CHF cannot be excluded. Assessment and Plan - Diagnosis (1) New onset of congestive heart failure Is this a current diagnosis for this admission?: Yes Plan: Patient presents with worsening of shortness of breath, orthopnea, and bilateral leg swelling Has bibasilar crackles on physical exam Chest x-ray shows mild cardiomegaly, right pleural effusion and bilateral infiltrates proBNP elevated at 359 Possibly new onset heart failure, unknown yet if systolic or diastolic HF Started on Lasix 40 mg IV twice daily Fluid restriction, daily weight, strict I&O's Ordered echo for this a.m. (2) Person under investigation for COVID-19 Is this a current diagnosis for this admission?: Yes Plan: Patient presents with cough, shortness of breath Chest x-ray significant for bilateral infiltrates and right pleural effusion Patient currently saturating well on room air We will continue supportive management Follow-up with COVID-19 test result (3) Diabetes Qualifiers: Diabetes mellitus type: type 2 Diabetes mellitus complication status: with hyperglycemia Is this a current diagnosis for this admission?: Yes Plan: - on diabetic diet - on dapaglifozin and metformin at home -Sliding scale insulin, Accu-Chek and hypoglycemia protocol (4) Elevated brain natriuretic peptide (BNP) level Is this a current diagnosis for this admission?: Yes Plan: - BNP 359 likely higher since she is morbidly obese - Trop <0.012 - echo pending (5) Morbid obesity Is this a current diagnosis for this admission?: Yes Plan: Counseled and encouraged her on lifestyle modification measures including dietary change and exercise (6) Hypertension Is this a current diagnosis for this admission?: Yes Plan: Low-sodium diet, resumed lisinopril and HCTZ (7) Hypothyroidism Qualifiers: Hypothyroidism type: unspecified Qualified Code(s): E03.9 - Hypothyroidism, unspecified Is this a current diagnosis for this admission?: Yes Plan: - continue levothyroxine - will check TSH (8) DVT prophylaxis Is this a current diagnosis for this admission?: Yes Plan: - lovenox 40 sq - Time Time Spent with patient: 25-34 minutes Anticipated Discharge Disposition: Home, Self Care Anticipated Discharge Timeframe: to be determined
[2020-06-06] MEDS: INSULIN LISPRO 100 UNIT/ML 3 ML VIAL SUBCUT SCH ×2 (16:57→23:07)
[2020-06-06] MEDS ORDERED: (PENDING PHARMACY ID) (Lisinopril [Lisinopril] 20 MG) PO SCH (18:00)
[2020-06-06] MEDS ORDERED: ATORVASTATIN CALCIUM 20 MG TABLET PO SCH (22:00)
[2020-06-06] MEDS: LISINOPRIL 10 MG TABLET PO SCH (23:15)
[2020-06-07 05:45] LABS: ABSOLUTE BASOPHILS # (AUTO) 0.2 10^3/uL (0.0-0.2); ABSOLUTE EOSINOPHILS # (AUTO) 0.5 10^3/uL (0.0-0.6); ABSOLUTE LYMPHOCYTES (AUTO) 2.6 10^3/uL (0.5-4.7); ABSOLUTE MONOCYTES (AUTO) 0.5 10^3/uL (0.1-1.4); ABSOLUTE NEUT (AUTO) 5.9 10^3/uL (1.7-8.2); EOSINOPHILS % (AUTO) 5.1 % (0-6); HEMATOCRIT 35.8 % (36.0-47.0); HEMOGLOBIN 11.6 g/dL (12.0-15.5); LYMPHOCYTES % (AUTO) 26.5 % (13-45); MEAN CORPUSCULAR HEMOGLOBIN 30.1 pg (27.0-33.4); MEAN CORPUSCULAR HGB CONC 32.4 g/dL (32.0-36.0); MEAN CORPUSCULAR VOLUME 93 fl (80-97); MONOCYTES % (AUTO) 5.4 % (3-13); PLATELET COUNT 255 10^3/uL (150-450); RED BLOOD COUNT 3.85 10^6/uL (3.72-5.28); RED CELL DISTRIBUTION WIDTH 15.3 % (11.5-14.0); TOTAL CELLS COUNTED % (AUTO) 100 %; WHITE BLOOD COUNT 9.7 10^3/uL (4.0-10.5)
[2020-06-07 06:04] LABS: ALBUMIN 3.5 g/dL (3.5-5.0); ALKALINE PHOSPHATASE 103 U/L (38-126); ANION GAP 8 (5-19); ASPARTATE AMINO TRANSFERASE 33 U/L (14-36); BILIRUBIN,DIRECT 0.3 mg/dL (0.0-0.4); BILIRUBIN,TOTAL 0.7 mg/dL (0.2-1.3); BLOOD UREA NITROGEN 13 mg/dL (7-20); CALCIUM 9.5 mg/dL (8.4-10.2); CARBON DIOXIDE 30 mmol/L (22-30); CHLORIDE 101 mmol/L (98-107); GLUCOSE 153 mg/dL (75-110); POTASSIUM 3.5 mmol/L (3.6-5.0); TOTAL PROTEIN 6.3 g/dL (6.3-8.2)
[2020-06-07] MEDS: PANTOPRAZOLE SODIUM 20 MG TABLET.DR PO SCH (06:21)
[2020-06-07] MEDS: LEVOTHYROXINE SODIUM 0.1 MG TABLET PO SCH (08:03)
[2020-06-07] MEDS: INSULIN LISPRO 100 UNIT/ML 3 ML VIAL SUBCUT SCH ×4 (08:12→22:12)
--- NOTE | 2020-06-07 08:43 | XCELERA REPORT ---
[address] [address] Transthoracic Echocardiogram Report Name: KATY MICHAESL Age: 44 yrs Gender: Female : 1975 Patient Status: Inpatient Patient Location: [address] [place], [place] [id number] Study Date: 06/06/2020 10:38 AM History: CHF Height: 64 in Weight: 362 lb BSA: 2.5 m2 Procedure: A complete two-dimensional transthoracic echocardiogram was performed (2D, M-mode, spectral and color flow Doppler). The study was technically difficult with many images being suboptimal in quality. Reason For Study: Possible new onset heart failure Previous Evaluation: No previous studies were available. History: CHF. Ordering Physician: BRUNILDA GEIGER Performed By: Eden Yeh Interpretation Summary The study was technically difficult with many images being suboptimal in quality. Left ventricular systolic function is normal. The Ejection Fraction estimate is 60-65% The right ventricle is normal in size and function. There is a trace amount of mitral regurgitation There is no aortic valve stenosis There is a trace amount of tricuspid regurgitation There is no pericardial effusion. MMode/2D Measurements & Calculations RVDd: 3.6 cm LVIDd: 4.5 cm FS: 42.4 % Ao root diam: 3.0 cm IVSd: 1.2 cm LVIDs: 2.6 cm EDV(Teich): 94.3 ml Ao root area: 7.1 cm2 LVPWd: 1.2 cm ESV(Teich): 25.0 ml LA dimension: 3.9 cm EF(Teich): 73.5 % Doppler Measurements & Calculations MV E max dilshad: MV P1/2t max dilshad: Ao V2 max: LV V1 max P.8 cm/sec 131.4 cm/sec 209.6 cm/sec 11.3 mmHg MV A max dilshad: MV P1/2t: 76.0 msec Ao max PG: LV V1 max: 91.3 cm/sec MVA(P1/2t): 2.9 cm2 17.6 mmHg 167.8 cm/sec MV E/A: 1.4 MV dec slope: 506.5 cm/sec2 MV dec time: 0.26 sec PA V2 max: PI end-d dilshad: MV P1/2t-pr_phl: 149.3 cm/sec 162.9 cm/sec 76.0 msec PA max P.9 mmHg Left Ventricle The left ventricle is normal in size. There is moderate concentric left ventricular hypertrophy. Left ventricular systolic function is normal. The Ejection Fraction estimate is 60-65%. Doppler measurements suggest pseudonormalized left ventricular relaxation, which is associated with grade II/IV or mild to moderate diastolic dysfunction. Regional wall motion abnormalities cannot be excluded due to limited visualization. Right Ventricle The right ventricle is normal in size and function. Atria The right atrium is normal. The left atrium is mildly dilated. The interatrial septum is intact with no evidence for an atrial septal defect. There is no Doppler evidence for an interatrial shunt. Mitral Valve The mitral valve is grossly normal. There is no mitral valve stenosis. There is a trace amount of mitral regurgitation. Aortic Valve The aortic valve is normal in structure and function. There is no aortic valve stenosis. No aortic regurgitation is present. Tricuspid Valve The tricuspid valve is normal in structure and function. There is no tricuspid stenosis. There is a trace amount of tricuspid regurgitation. Tricuspid regurgitation jet envelope not well defined to measure RV systolic pressure accurately. Pulmonic Valve The pulmonic valve is normal in structure and function. There is no pulmonic valvular stenosis. There is a mild amount of pulmonic regurgitation. Great Vessels The aortic root is normal size. The inferior vena cava appeared dilated and decreased < 50% with respiration (RAP 15-20 mmHg). Effusions There is no pericardial effusion. : BRUNILDA GEIGER Anil
[2020-06-07] MEDS: ZINC SULFATE 220 MG CAPSULE PO SCH (09:42)
[2020-06-07] MEDS: ASCORBIC ACID 500 MG TABLET PO SCH ×2 (09:42→17:11)
[2020-06-07] MEDS: CHOLECALCIFEROL (D3) 1,000 UNIT (25 MCG) TABLET PO SCH (09:42)
[2020-06-07] MEDS: ENOXAPARIN SODIUM INJ 40 MG/0.4 ML DISP.SYRIN SUBCUT SCH (09:43)
[2020-06-07] MEDS: AZITHROMYCIN 250 MG TABLET PO SCH (09:43)
[2020-06-07] MEDS: LISINOPRIL 10 MG TABLET PO SCH ×2 (09:43→21:16)
[2020-06-07] MEDS: FAMOTIDINE 20 MG TABLET PO SCH ×2 (09:43→21:17)
[2020-06-07] MEDS: FUROSEMIDE INJ/PF 40 MG/4 ML SDV IV SCH ×2 (09:44→21:17)
[2020-06-07] MEDS ORDERED: HYDROCHLOROTHIAZIDE 25 MG TABLET PO SCH (10:00)
[2020-06-07] MEDS ORDERED: HYDROCHLOROTHIAZIDE 25 MG PO SCH (10:00)
--- NOTE | 2020-06-07 16:44 | PDOC PROGRESS REPORT ---
Subjective Progress Note for:: 06/07/20 Subjective:: KATY MICHAELS is a 44 year old female with a history of hypertension, diabetes, asthma and hypothyroidism who presents to ER with 3 days duration of worsening of shortness of breath, orthopnea, PND and leg swelling. She states that she has been experiencing progressively increasing shortness of breath over the past few weeks but the past 3 days it got worse and she was unable to move from one room to another without feeling short of breath. She also endorses a nonproductive cough for the past 3 days. She claims that she has gained about 40 pounds in the past 2 weeks. She denies any recent contact with sick patient. She also denies any fever, chills, chest pain, palpitation, dizziness/lightheadedness, nausea, vomiting, diarrhea, abdominal pain or any change in her urinary habits. She denies any history of sore throat or skin rash. D1 hospital stay 06/06/20. She was seen and examined at bedside. She reports improvement of her shortness of breath. She denied any chest pain, palpitations. No previous stress test. Upon further history she did confirm about a 30 pound weight gain for the past several weeks, with orthopnea, leg swelling and PND. She denied any prior heart condition, no previous heart attacks. Echo was done awaiting reading. She is currently on Lasix 40 IV twice daily. D2 hospital stay 06/07/20. She was seen and examined at bedside. Swelling has improved a little as well as her SOB. No chest pain. Echo result revealed grade II/IV diastolic dysfunction. She is continued on Lasix 40 IV twice daily. Covid test negative. Reason For Visit: NEW ONSET HEART FAILURE,SUSPECTED COVID-19 Physical Exam Vital Signs: Temp Pulse Resp BP Pulse Ox 98.2 F 74 20 128/81 H 91 L 06/07/20 15:33 06/07/20 15:33 06/07/20 15:33 06/07/20 15:33 06/07/20 15:33 Intake & Output 06/06/20 06/07/20 06/08/20 06:59 06:59 06:59 Intake Total 1140 118 Output Total 3300 Balance 1140 -3182 Weight 164.5 kg 158.2 kg General appearance: PRESENT: no acute distress, cooperative, morbidly obese Head exam: PRESENT: atraumatic, normocephalic Eye exam: PRESENT: EOMI, PERRLA Mouth exam: PRESENT: moist Neck exam: PRESENT: full ROM Respiratory exam: PRESENT: rales, symmetrical, unlabored Cardiovascular exam: PRESENT: RRR, +S1, +S2 Pulses: PRESENT: +2 pedal pulses bilateral GI/Abdominal exam: PRESENT: normal bowel sounds, soft. ABSENT: rebound, tenderness Extremities exam: PRESENT: full ROM, +2 edema Neurological exam: PRESENT: alert, awake, oriented to person, oriented to place, oriented to time, oriented to situation Psychiatric exam: PRESENT: normal mood Results Laboratory Results: 06/07/20 05:28 06/07/20 05:28 06/07/20 06/07/20 06/07/20 05:28 05:28 05:28 WBC 9.7 RBC 3.85 Hgb 11.6 L Hct 35.8 L MCV 93 MCH 30.1 MCHC 32.4 RDW 15.3 H Plt Count 255 Seg Neutrophils % 61.0 Sodium 139.1 Potassium 3.5 L Chloride 101 Carbon Dioxide 30 Anion Gap 8 BUN 13 Creatinine 0.61 Est GFR ( Amer) > 60 Glucose 153 H Calcium 9.5 Total Bilirubin 0.7 AST 33 Alkaline Phosphatase 103 Total Protein 6.3 Albumin 3.5 TSH 1.42 06/06/20 00:15 Troponin I < 0.012 NT-Pro-B Natriuret Pep 359 H Impressions: Chest X-Ray 06/05/20 19:40 IMPRESSION: Abnormal chest x-ray which could be secondary to pneumonia. Viral etiologies not excluded. Presence of a right pleural effusion is currently not seen with covid. By radiographic appearance, the possibility of CHF cannot be excluded. Assessment and Plan - Diagnosis (1) Diastolic CHF with preserved left ventricular function, NYHA class 2 Is this a current diagnosis for this admission?: Yes Plan: - Patient presents with worsening of shortness of breath, orthopnea, and bilateral leg swelling Has bibasilar crackles on physical exam Chest x-ray shows mild cardiomegaly, right pleural effusion and bilateral infilt rates proBNP elevated at 359 Echo showed EF 60-65% grade II/IV diastolic dysfunction continue Lasix 40 mg IV twice daily started on aldactone 25 mg daily started on carvedilol 3.125 daily cardio follow up on discharge Fluid restriction, daily weight, strict I&O's (2) Diabetes Qualifiers: Diabetes mellitus type: type 2 Diabetes mellitus complication status: with hyperglycemia Is this a current diagnosis for this admission?: Yes Plan: - on diabetic diet - on dapaglifozin and metformin at home -Sliding scale insulin, Accu-Chek and hypoglycemia protocol (3) Elevated brain natriuretic peptide (BNP) level Is this a current diagnosis for this admission?: Yes Plan: - BNP 359 likely higher since she is morbidly obese - Trop <0.012 - echo diastolic dysfunction grade II/IV - started on carvedilol, losartan, spironolactone,aspirin and statin (4) Morbid obesity Is this a current diagnosis for this admission?: Yes Plan: Counseled and encouraged her on lifestyle modification measures including dietary change and exercise (5) Hypertension Is this a current diagnosis for this admission?: Yes Plan: Low-sodium diet, resumed lisinopril and HCTZ (6) Hypothyroidism Qualifiers: Hypothyroidism type: unspecified Qualified Code(s): E03.9 - Hypothyroidism, unspecified Is this a current diagnosis for this admission?: Yes Plan: - continue levothyroxine - TSH 1.4 (7) DVT prophylaxis Is this a current diagnosis for this admission?: Yes Plan: - lovenox 40 sq (8) Person under investigation for COVID-19 Is this a current diagnosis for this admission?: Yes Plan: COVID negtaive. Patient presents with cough, shortness of breath Chest x-ray significant for bilateral infiltrates and right pleural effusion - Time Time Spent with patient: 25-34 minutes Anticipated Discharge Disposition: Home, Self Care Anticipated Discharge Timeframe: within 48 hours
[2020-06-07] MEDS: SPIRONOLACTONE 25 MG TABLET PO SCH (17:03)
[2020-06-07] MEDS ORDERED: DIPHENHYDRAMINE HCL 50 MG CAPSULE PO PRN (22:00)
[2020-06-07] MEDS ORDERED: ATORVASTATIN CALCIUM 20 MG TABLET PO SCH (22:00)
[2020-06-07] MEDS ORDERED: ATORVASTATIN CALCIUM 40 MG TABLET PO SCH (22:00)
[2020-06-08 05:21] LABS: ABSOLUTE MONOCYTES (AUTO) 0.6 10^3/uL (0.1-1.4); TOTAL CELLS COUNTED % (AUTO) 100 %
[2020-06-08 05:29] LABS: ABSOLUTE BASOPHILS # (AUTO) 0.1 10^3/uL (0.0-0.2); ABSOLUTE EOSINOPHILS # (AUTO) 0.4 10^3/uL (0.0-0.6); ABSOLUTE NEUT (AUTO) 7.1 10^3/uL (1.7-8.2); BASOPHILS % (AUTO) 1.3 % (0-2); EOSINOPHILS % (AUTO) 3.5 % (0-6); HEMOGLOBIN 12.4 g/dL (12.0-15.5); LYMPHOCYTES % (AUTO) 26.7 % (13-45); MEAN CORPUSCULAR HEMOGLOBIN 29.9 pg (27.0-33.4); MEAN CORPUSCULAR HGB CONC 32.7 g/dL (32.0-36.0); MEAN CORPUSCULAR VOLUME 91 fl (80-97); MONOCYTES % (AUTO) 5.1 % (3-13); PLATELET COUNT 283 10^3/uL (150-450); RED BLOOD COUNT 4.16 10^6/uL (3.72-5.28); RED CELL DISTRIBUTION WIDTH 15.1 % (11.5-14.0); SEGMENTED NEUTROPHILS % (AUTO) 63.4 % (42-78); WHITE BLOOD COUNT 11.2 10^3/uL (4.0-10.5)
[2020-06-08] MEDS: PANTOPRAZOLE SODIUM 20 MG TABLET.DR PO SCH (05:43)
[2020-06-08 05:52] LABS: ALBUMIN 3.6 g/dL (3.5-5.0); ALKALINE PHOSPHATASE 99 U/L (38-126); ANION GAP 10 (5-19); ASPARTATE AMINO TRANSFERASE 32 U/L (14-36); BILIRUBIN,DIRECT 0.3 mg/dL (0.0-0.4); BILIRUBIN,TOTAL 0.8 mg/dL (0.2-1.3); BLOOD UREA NITROGEN 14 mg/dL (7-20); CALCIUM 9.6 mg/dL (8.4-10.2); CARBON DIOXIDE 32 mmol/L (22-30); CHLORIDE 96 mmol/L (98-107); GLUCOSE 132 mg/dL (75-110); POTASSIUM 3.5 mmol/L (3.6-5.0); TOTAL PROTEIN 6.7 g/dL (6.3-8.2)
[2020-06-08] MEDS: LEVOTHYROXINE SODIUM 0.1 MG TABLET PO SCH (08:40)
[2020-06-08] MEDS: INSULIN LISPRO 100 UNIT/ML 3 ML VIAL SUBCUT SCH ×2 (08:40→11:54)
[2020-06-08] MEDS ORDERED: CARVEDILOL 6.25 MG TABLET PO SCH (10:00)
[2020-06-08] MEDS ORDERED: ONDANSETRON 4 MG TAB.RAPDIS PO PRN (10:12)
[2020-06-08] MEDS: ASCORBIC ACID 500 MG TABLET PO SCH (10:47)
[2020-06-08] MEDS: ZINC SULFATE 220 MG CAPSULE PO SCH (10:47)
[2020-06-08] MEDS: SPIRONOLACTONE 25 MG TABLET PO SCH (10:47)
[2020-06-08] MEDS: CHOLECALCIFEROL (D3) 1,000 UNIT (25 MCG) TABLET PO SCH (10:48)
[2020-06-08] MEDS: FAMOTIDINE 20 MG TABLET PO SCH (10:48)
[2020-06-08] MEDS: LISINOPRIL 10 MG TABLET PO SCH (10:48)
[2020-06-08] MEDS: FUROSEMIDE INJ/PF 40 MG/4 ML SDV IV SCH (10:48)
[2020-06-08] MEDS: ENOXAPARIN SODIUM INJ 40 MG/0.4 ML DISP.SYRIN SUBCUT SCH (10:51)
[2020-06-08] MEDS ORDERED: POLYETHYLENE GLYCOL 3350 POWDER 17 GM/1 PACKET PO ONE (11:00)
[2020-06-08 11:57] VITALS: BP 146/86
--- NOTE | 2020-06-08 21:05 | PDOC DISCHARGE SUMMARY ---
Impression - Admit/DC Date/PCP Admission Date/Primary Care Provider: 06/06/20 03:09 MORE OLIVEIRA Discharge Date: 06/08/20 - Discharge Diagnosis (1) Diastolic CHF with preserved left ventricular function, NYHA class 2 Is this a current diagnosis for this admission?: Yes (2) Diabetes Is this a current diagnosis for this admission?: Yes (3) Elevated brain natriuretic peptide (BNP) level Is this a current diagnosis for this admission?: Yes (4) Morbid obesity Is this a current diagnosis for this admission?: Yes (5) Hypertension Is this a current diagnosis for this admission?: Yes (6) Hypothyroidism Is this a current diagnosis for this admission?: Yes (7) DVT prophylaxis Is this a current diagnosis for this admission?: Yes (8) Person under investigation for COVID-19 Is this a current diagnosis for this admission?: Yes - Assessment Summary: (1) Diastolic CHF with preserved left ventricular function, NYHA class 2 Is this a current diagnosis for this admission?: Yes Plan: - Patient presents with worsening of shortness of breath, orthopnea, and bilateral leg swelling Has bibasilar crackles on physical exam Chest x-ray shows mild cardiomegaly, right pleural effusion and bilateral infiltrates proBNP elevated at 359 Echo showed EF 60-65% grade II/IV diastolic dysfunction continue Lasix 40 mg IV twice daily started on aldactone 25 mg daily started on carvedilol 3.125 daily cardio follow up on discharge Fluid restriction, daily weight, strict I&O's (2) Diabetes Qualifiers: Diabetes mellitus type: type 2 Diabetes mellitus complication status: with hyperglycemia Is this a current diagnosis for this admission?: Yes Plan: - on diabetic diet - on dapaglifozin and metformin at home -Sliding scale insulin, Accu-Chek and hypoglycemia protocol (3) Elevated brain natriuretic peptide (BNP) level Is this a current diagnosis for this admission?: Yes Plan: - BNP 359 likely higher since she is morbidly obese - Trop <0.012 - echo diastolic dysfunction grade II/IV - started on carvedilol, losartan, spironolactone,aspirin and statin (4) Morbid obesity Is this a current diagnosis for this admission?: Yes Plan: Counseled and encouraged her on lifestyle modification measures including dietary change and exercise (5) Hypertension Is this a current diagnosis for this admission?: Yes Plan: Low-sodium diet, resumed lisinopril and HCTZ (6) Hypothyroidism Qualifiers: Hypothyroidism type: unspecified Qualified Code(s): E03.9 - Hypothyroidism, unspecified Is this a current diagnosis for this admission?: Yes Plan: - continue levothyroxine - TSH 1.4 (7) DVT prophylaxis Is this a current diagnosis for this admission?: Yes Plan: - lovenox 40 sq (8) Person under investigation for COVID-19 Is this a current diagnosis for this admission?: Yes Plan: COVID negtaive. Patient presents with cough, shortness of breath Chest x-ray significant for bilateral infiltrates and right pleural effusion - Additional Information Resuscitation Status: Full Code Discharge Diet: Cardiac, Diabetic Discharge Activity: Activity As Tolerated, Balance Activity w/Rest, Weigh Daily Referrals: JIMMIE MARIN FNP [Primary Care Provider] - 06/15/20 2:45 pm (left a message for [email or web address] 06-06-20 (11:54) (4:45)) Prescriptions: Spironolactone [Aldactone 25 mg Tablet] 25 mg PO DAILY 14 Days #14 tablet Aspirin [Aspirin 81 mg Chewable Tablet] 81 mg PO DAILY 30 Days #30 pkg Carvedilol [Coreg 6.25 mg Tablet] 6.25 mg PO DAILY 30 Days #30 tablet Furosemide [Lasix 40 mg Tablet] 40 mg PO QAM 14 Days #14 tablet Home Medications: Levothyroxine Sodium [Synthroid] 100 mcg PO QAM 10/06/16 Metformin HCl [Glucophage] 1,000 mg PO BID 10/06/16 Dapagliflozin Propanediol [Farxiga] 10 mg PO DAILY 06/06/20 Lisinopril 20 mg PO BID 06/06/20 Omeprazole 20 mg PO DAILY 06/06/20 Pregabalin 75 mg PO BID 06/06/20 Aspirin [Aspirin 81 mg Chewable Tablet] 81 mg PO DAILY 30 Days #30 pkg 06/08/20 Atorvastatin Calcium [Lipitor 20 mg Tablet] 40 mg PO QHS 30 Days #30 tab 06/08/20 Carvedilol [Coreg 6.25 mg Tablet] 6.25 mg PO DAILY 30 Days #30 tablet 06/08/20 Furosemide [Lasix 40 mg Tablet] 40 mg PO QAM 14 Days #14 tablet 06/08/20 Spironolactone [Aldactone 25 mg Tablet] 25 mg PO DAILY 14 Days #14 tablet 06/08/20 History of Present Illiness History of Present Illness: KATY MICHAELS is a 44 year old female, with a history of hypertension, diabetes, asthma and hypothyroidism who presents to ER with 3 days duration of worsening of shortness of breath, orthopnea, PND and leg swelling. She states that she has been experiencing progressively increasing shortness of breath over the past few weeks but the past 3 days it got worse and she was unable to move from one room to another without feeling short of breath. She also endorses a nonproductive cough for the past 3 days. She claims that she has gained about 40 pounds in the past 2 weeks. She denies any recent contact with sick patient. She also denies any fever, chills, chest pain, palpitation, dizziness/lightheadedness, nausea, vomiting, diarrhea, abdominal pain or any change in her urinary habits. She denies any history of sore throat or skin rash. Hospital Course Hospital Course: D1 hospital stay 06/06/20. She was seen and examined at bedside. She reports improvement of her shortness of breath. She denied any chest pain, palpitations. No previous stress test. Upon further history she did confirm about a 30 pound weight gain for the past several weeks, with orthopnea, leg swelling and PND. She denied any prior heart condition, no previous heart attacks. Echo was done awaiting reading. She is currently on Lasix 40 IV twice daily. D2 hospital stay 06/07/20. She was seen and examined at bedside. Swelling has improved a little as well as her SOB. No chest pain. Echo result revealed grade II/IV diastolic dysfunction. She is continued on Lasix 40 IV twice daily. Covid test negative. D3 Hospital stay 06/08/20. She was seen and examined at bedside. Edema has decreased considerably with diuretics. Weight down from 164 to 153 kg and subjectively she reported improvement of her SOB. She was eventually discharged on aldactone, lasix, lisinopril and statin. follow up with PCP within 1 week. She would need to see a machine pie maker as well. Physical Exam Vital Signs: Temp Pulse Resp BP Pulse Ox 97.9 F 91 16 146/86 H 90 L 06/08/20 11:55 06/08/20 11:55 06/08/20 11:55 06/08/20 11:55 06/08/20 11:55 Intake & Output 06/07/20 06/08/20 06/09/20 06:59 06:59 06:59 Intake Total 1140 618 Output Total 5100 Balance 1140 -1502 Weight 158.2 kg 153.5 kg General appearance: PRESENT: no acute distress, cooperative, morbidly obese Head exam: PRESENT: atraumatic, normocephalic Eye exam: PRESENT: EOMI, PERRLA Mouth exam: PRESENT: moist Neck exam: PRESENT: full ROM Respiratory exam: PRESENT: clear to auscultation james, symmetrical, unlabored Cardiovascular exam: PRESENT: RRR, +S1, +S2 Pulses: PRESENT: +2 pedal pulses bilateral GI/Abdominal exam: PRESENT: normal bowel sounds, soft. ABSENT: rebound, tenderness Extremities exam: PRESENT: full ROM, +2 edema Musculoskeletal exam: PRESENT: full ROM Neurological exam: PRESENT: alert, awake, oriented to person, oriented to place, oriented to time, oriented to situation Psychiatric exam: PRESENT: normal mood Results Laboratory Results: WBC 11.2 10^3/uL (4.0-10.5) H 06/08/20 04:42 RBC 4.16 10^6/uL (3.72-5.28) 06/08/20 04:42 Hgb 12.4 g/dL (12.0-15.5) 06/08/20 04:42 Hct 38.0 % (36.0-47.0) 06/08/20 04:42 MCV 91 fl (80-97) 06/08/20 04:42 MCH 29.9 pg (27.0-33.4) 06/08/20 04:42 MCHC 32.7 g/dL (32.0-36.0) 06/08/20 04:42 RDW 15.1 % (11.5-14.0) H 06/08/20 04:42 Plt Count 283 10^3/uL (150-450) 06/08/20 04:42 Lymph % (Auto) 26.7 % (13-45) 06/08/20 04:42 [place] % (Auto) 5.1 % (3-13) 06/08/20 04:42 Eos % (Auto) 3.5 % (0-6) 06/08/20 04:42 Baso % (Auto) 1.3 % (0-2) 06/08/20 04:42 Absolute Neuts (auto) 7.1 10^3/uL (1.7-8.2) 06/08/20 04:42 Absolute Lymphs (auto) 3.0 10^3/uL (0.5-4.7) 06/08/20 04:42 Absolute Monos (auto) 0.6 10^3/uL (0.1-1.4) 06/08/20 04:42 Absolute Eos (auto) 0.4 10^3/uL (0.0-0.6) 06/08/20 04:42 Absolute Basos (auto) 0.1 10^3/uL (0.0-0.2) 06/08/20 04:42 Seg Neutrophils % 63.4 % (42-78) 06/08/20 04:42 Sodium 138.4 mmol/L (137-145) 06/08/20 04:42 Potassium 3.5 mmol/L (3.6-5.0) L 06/08/20 04:42 Chloride 96 mmol/L (98-107) L 06/08/20 04:42 Carbon Dioxide 32 mmol/L (22-30) H 06/08/20 04:42 Anion Gap 10 (5-19) 06/08/20 04:42 BUN 14 mg/dL (7-20) 06/08/20 04:42 Creatinine 0.75 mg/dL (0.52-1.25) 06/08/20 04:42 Est GFR ( Amer) > 60 (>60) 06/08/20 04:42 Est GFR (MDRD) Non-Af > 60 (>60) 06/08/20 04:42 Glucose 132 mg/dL (75-110) H 06/08/20 04:42 POC Glucose 160 mg/dL (70-110) H 06/08/20 08:13 Hemoglobin A1c % 8.4 % (4.7-6.0) H 06/07/20 05:28 Calcium 9.6 mg/dL (8.4-10.2) 06/08/20 04:42 Total Bilirubin 0.8 mg/dL (0.2-1.3) 06/08/20 04:42 Direct Bilirubin 0.3 mg/dL (0.0-0.4) 06/08/20 04:42 Neonat Total Bilirubin Not Reportable 06/08/20 04:42 Neonat Direct Bilirubin Not Reportable 06/08/20 04:42 Neonat Indirect Bili Not Reportable 06/08/20 04:42 AST 32 U/L (14-36) 06/08/20 04:42 ALT 33 U/L (<35) 06/08/20 04:42 Alkaline Phosphatase 99 U/L (38-126) 06/08/20 04:42 Troponin I < 0.012 ng/mL 06/06/20 00:15 C-Reactive Protein 40.4 mg/L (<10.0) H 06/06/20 00:15 NT-Pro-B Natriuret Pep 359 pg/mL (<125) H 06/06/20 00:15 Total Protein 6.7 g/dL (6.3-8.2) 06/08/20 04:42 Albumin 3.6 g/dL (3.5-5.0) 06/08/20 04:42 TSH 1.42 uIU/mL (0.47-4.68) 06/07/20 05:28 Urine Color YELLOW 06/06/20 00:00 Urine Appearance CLEAR 06/06/20 00:00 Urine pH 7.0 (5.0-9.0) 06/06/20 00:00 Ur Specific Paige 1.037 06/06/20 00:00 Urine Protein NEGATIVE mg/dL (NEGATIVE) 06/06/20 00:00 Urine Glucose (UA) >=500 mg/dL (NEGATIVE) H 06/06/20 00:00 Urine Ketones NEGATIVE mg/dL (NEGATIVE) 06/06/20 00:00 Urine Blood NEGATIVE (NEGATIVE) 06/06/20 00:00 Urine Nitrite NEGATIVE (NEGATIVE) 06/06/20 00:00 Urine Bilirubin NEGATIVE (NEGATIVE) 06/06/20 00:00 Urine Urobilinogen 2.0 mg/dL (<2.0) H 06/06/20 00:00 Ur Leukocyte Esterase TRACE (NEGATIVE) H 06/06/20 00:00 Urine WBC (Auto) 6 /HPF 06/06/20 00:00 Urine RBC (Auto) 3 /HPF 06/06/20 00:00 Squamous Epi Cells Auto 1 /HPF 06/06/20 00:00 Urine Mucus (Auto) RARE /LPF 06/06/20 00:00 Urine Ascorbic Acid NEGATIVE (NEGATIVE) 06/06/20 00:00 Urine HCG, Qual NEGATIVE (NEGATIVE) 06/06/20 00:00 COVID-19 Source See comment 06/06/20 01:15 COVID-19 ([facility]WA) Not Detected (Not Detect) 06/06/20 01:15 Influenza A (Rapid) NEGATIVE (NEGATIVE) 06/06/20 01:15 Influenza B (Rapid) NEGATIVE (NEGATIVE) 06/06/20 01:15 06/06/20 00:15 Troponin I < 0.012 NT-Pro-B Natriuret Pep 359 H Impressions: Chest X-Ray 06/05/20 19:40 IMPRESSION: Abnormal chest x-ray which could be secondary to pneumonia. Viral etiologies not excluded. Presence of a right pleural effusion is currently not seen with covid. By radiographic appearance, the possibility of CHF cannot be excluded. Plan Health Concerns: edema - 2/2 to HFpEF. She was discharged on aldactone, beta rachel, alsix, lis inopril and statin. Needs follow up with PCP within 1 week. Plan of Treatment: continue with lasix, aldactone, lisinopril and beta rachel Time Spent: Greater than 30 Minutes Stroke Is this a Stroke Patient?: No Acute Heart Failure Is this a Heart Failure Patient?: Yes Documentation of LVEF assessment?: Yes LVEF: LVEF Greater Than 40% Anticoagulant Therapy: N/A Discharged on Evidence-Based Beta Blockers: Yes Discharged on ARNI?: No-Document Contraindications Reason(s) not discharged on ARNI: New onset heart failure Discharged on ARB?: No-document contraindications Reason(s) not Discharged on ARB: Other ARB Reason - Other: on lisinopril Discharged on ACEI?: Yes For LVEF <35%, discharged on Aldosterone Antagonist?: Yes Follow-up Appointment scheduled within 7 days?: Yes
== END 2020-06-08 12:37 | disposition home or self-care (01) ==
LOC: ER 17:47 → INTOOBSV 06-06 03:09 → EH 06-06 03:09 → 3W 06-06 08:00
PROVIDERS: ADMIT Student in an Organized Health Care Education/Training Program; ATTEND Internal Medicine
DX: I11.0 Hypertensive heart disease with heart failure (principal); I50.32 Chronic diastolic (congestive) heart failure; E11.65 Type 2 diabetes mellitus with hyperglycemia; R79.89 Other specified abnormal findings of blood chemistry; E66.01 Morbid (severe) obesity due to excess calories; E03.9 Hypothyroidism, unspecified; Z79.01 Long term (current) use of anticoagulants; R06.02 Shortness of breath; R06.01 Orthopnea; R06.00 Dyspnea, unspecified; R60.0 Localized edema; R05 Cough; R09.82 Postnasal drip; J90 Pleural effusion, not elsewhere classified; M54.9 Dorsalgia, unspecified; Z20.828 Contact with and (suspected) exposure to other viral communicable diseases; J45.909 Unspecified asthma, uncomplicated; F17.200 Nicotine dependence, unspecified, uncomplicated; Z79.84 Long term (current) use of oral hypoglycemic drugs; Z79.899 Other long term (current) drug therapy; Z88.8 Allergy status to other drugs, medicaments and biological substances
CPT/HCPCS: 93005; 99285; 96374; 36415 ×3; 82962 ×3; 84443; 85025 ×3; 81025; 87070; 86140; 80053 ×2; 81001; 84484; 83036; 87804; 83880; 93306; 71045; 93010; G0378 ×4; U0003; J3490 ×6; J1940 ×4; J1815 ×2; J1650 ×3; C9803; 87635